=== PATIENT | male | born 1945 | race Caucasian/White ===

== ENCOUNTER 2018-09-23 05:36 | Inpatient (IN) ==
--- NOTE | 2018-09-08 09:27 | PAT Medication Instructions ---
Medication Instructions Date of Service September 08, 2018 Home Medications aspirin [Aspir-81] 81 mg PO QAM cholecalciferol (vitamin D3) 1,000 unit PO QAM cyclobenzaprine 10 mg PO TID PRN docusate sodium 100 mg PO QAM folic acid 1 mg PO QAM lisinopril 20 mg PO QPM multivitamin 1 tab PO QAM phenytoin sodium extended 300 mg PO BID pravastatin 40 mg PO QPM sulindac 200 mg PO TID testosterone 1 dose TOPICAL QAM ASK your surgeon for instructions sulindac 200 mg PO TID STOP taking 24 hours before surgery testosterone 1 dose TOPICAL QAM DO NOT take the morning of surgery cholecalciferol (vitamin D3) 1,000 unit PO QAM cyclobenzaprine 10 mg PO TID PRN docusate sodium 100 mg PO QAM folic acid 1 mg PO QAM multivitamin 1 tab PO QAM Take morning of surgery With a small sip of water, OTHERWISE NOTHING TO EAT OR DRINK AFTER MIDNIGHT: aspirin [Aspir-81] 81 mg PO QAM phenytoin sodium extended 300 mg PO BID Take evening before surgery cyclobenzaprine 10 mg PO TID PRN (if needed) lisinopril 20 mg PO QPM phenytoin sodium extended 300 mg PO BID pravastatin 40 mg PO QPM Other Notes If you have any questions please call us at [phone] or [phone] or [phone] or [phone]
--- NOTE | 2018-09-08 12:40 | Anesthesiology Consultation ---
Date of Service September 08, 2018 Assessment & Plan (1) Encounter for pre-operative examination: Chart Review Chart Review: Acceptable Risk for Surgery and Patient seen in Pre Admission Testing Teaching & Discussion Instructed NPO after midnight before surgery, except medications with 15 cc of water. Medication instructions provided according to the PAT guidelines. History Surgery Operation Date: 09/23/18 12:25 Proposed Procedures p L4-L5, L5-S1 Decompression and Fusion - Addison Donis DO Height/Weight Height: 6 ft 1 in Weight: 116.8 kg Allergies Allergy/AdvReac Type Severity Reaction Status Date / Time fexofenadine Allergy Unknown unknown Verified 09/01/18 11:35 simvastatin Allergy Unknown Nausea Verified 09/01/18 11:35 Sulfa (Sulfonamide Allergy Unknown UNKNOWN Verified 09/01/18 11:35 Antibiotics) Medications Home Medications Medication Instructions Recorded Confirmed Last Taken aspirin [Aspir-81] 81 mg PO QAM 09/01/18 09/01/18 Unknown cholecalciferol (vitamin D3) 1,000 unit PO QAM 09/01/18 09/01/18 Unknown [Vitamin D3] cyclobenzaprine 10 mg PO TID PRN 09/01/18 09/01/18 Unknown docusate sodium 100 mg PO QAM 09/01/18 09/01/18 Unknown folic acid 1 mg PO QAM 09/01/18 09/01/18 Unknown lisinopril 20 mg PO QPM 09/01/18 09/01/18 Unknown multivitamin 1 tab PO QAM 09/01/18 09/01/18 Unknown phenytoin sodium extended 300 mg PO BID 09/01/18 09/01/18 Unknown [Dilantin Extended] pravastatin 40 mg PO QPM 09/01/18 09/01/18 Unknown sulindac 200 mg PO TID 09/01/18 09/01/18 Unknown testosterone 1 dose TOPICAL QAM 09/01/18 09/01/18 Unknown Past Medical History Medical History Chronic back pain TO BILAT LEGS Hyperlipidemia Hypertension Obesity Osteoarthritis Post traumatic stress disorder Seizure Tonic-clonic, 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 No seizure x 3 years. Past Surgical History Surgical History History of carpal tunnel release R/L History of tonsillectomy Hx of varicose vein ligation and stripping RIGHT LEG Past Anesthesia History No Hx of Anesthesia Complications and No Family Hx of Anesthesia Complications History of PONV No Motion Sickness Screening History of Motion Sickness: No Social History Smoking Status: Former smoker Do You Dip or Chew Tobacco: No Smoking End Date: QUIT 50 YRS AGO Hx Alcohol Use: Yes Alcohol type: beer alcohol intake frequency: a few times a month Hx Substance Use: No Exercise / Class Metabolic Activity II 4-5 Yardwork/Stairs/Walk up hill (no SOB or CP with stairs but slow moving 2/ 2 back and leg pain) Review of Systems Pt denies any recent chest pain, shortness of breath, palpitations, cough, fever or URI. Physical Exam Vital Signs BP: 146/85 (pt evaluated by PCP this morning, no changes in HTN medications at this time) P: 79bpm SPO2: 96% RA T: 97.4 F R: 12 ENMT Mouth: + dentures (full upper, partial lower) Thyromental Distance: > or= 3.5 Finger Breadths (3.5) Mallampati Class: I Neck normal visual inspection; neck extension not limited and no facial hair Respiratory normal respiratory effort Auscultation: lungs clear to auscultation bilaterally Cardiovascular Rate/Rhythm: regular rate and regular rhythm Heart Sounds: no murmur Vessels: no carotid bruit Extremities: no edema Testing Electrocardiogram Date: 09/08/18 Findings: + NSR @ (77) 1st degree AV block. iRBBB. No significant change from 06/30/13 EKG. Chest X-Ray Date: 09/08/18 Findings: + NAD Laboratory Results 09/08/18 13:10 09/08/18 13:10 Blood Type O Positive 09/08/18 13:10 Antibody Screen NEGATIVE 09/08/18 13:10 PT 10.5 Seconds (9.0-12.0) 09/08/18 13:10 INR 1.0 (0.9-1.1) 09/08/18 13:10 APTT 28.6 Seconds (21.0-31.0) 09/08/18 13:10 Urine Color Yellow 09/08/18 Unknown Urine Appearance Clear (Clear) 09/08/18 Unknown Urine pH 6.5 (4.5-7.5) 09/08/18 Unknown Ur Specific [place] 1.015 (1.000-1.030) 09/08/18 Unknown Urine Protein Negative (Negative) 09/08/18 Unknown Urine Glucose (UA) Negative (Negative) 09/08/18 Unknown Urine Ketones Negative (Negative) 09/08/18 Unknown Urine Nitrite Negative (Negative) 09/08/18 Unknown Ur Leukocyte Esterase Negative (Negative) 09/08/18 Unknown
--- NOTE | 2018-09-08 13:28 | XRay Report ---
XR chest Pre-admission PA/Lat CLINICAL HISTORY: 73 years-old Male presenting with preoperative assessment. TECHNIQUE: PA and lateral views of the chest were obtained. COMPARISON: 06/30/2013. FINDINGS: Cardiac silhouette top normal in size. Lungs and pleural spaces clear. Degenerative changes of the th oracic spine. Colonic interposition beneath the right hemidiaphragm. IMPRESSION: 1. No acute cardiopulmonary disease. Electronically signed by: Kb Larsen M.D. 09/08/2018 1:26 PM
[2018-09-08 15:37] LABS: Basophils # (auto) 0.08 K/uL (0-0.2); Basophils % (auto) 0.9 %; Eosinophils # (auto) 0.16 K/uL (0-0.5); Eosinophils % (auto) 1.8 %; Hematocrit (blood only) 41.6 % (42-52); Hemoglobin 14.2 g/dL (14.0-18.0); Immature Granulocytes # (auto) 0.02 K/uL (0.00-0.02); Immature Granulocytes % (auto) 0.2 %; Lymphocytes # (auto) 2.19 K/uL (1.2-3.4); Lymphocytes % (auto) 24.1 %; Mean Corpuscular Hgb Conc 34.1 g/dL (32-36); Mean Corpuscular Volume 93.7 fL (80-100); Mean Platelet Volume 9.7 fL (7.4-10.4); Monocytes # (auto) 0.93 K/uL (0.11-0.59); Monocytes % (auto) 10.2 %; Neutrophils % (auto) 62.8 %; Platelet Count 309 K/uL (130-400); RDW Coefficient of Variation 13.2 % (11.5-14.5); RDW Standard Deviation 45.8 fL (36.4-46.3); Red Blood Count 4.44 M/uL (4.7-6.1); White Blood Count 9.08 K/uL (4.8-10.8)
[2018-09-08 15:43] LABS: Appearance Urine Clear (Clear); Bilirubin Urine Negative (Negative); Color Urine Yellow; Glucose Urine UA Negative (Negative); Ketones Urine Negative (Negative); Leukocyte Esterase Urine Negative (Negative); Nitrite Urine Negative (Negative); Protein Urine Negative (Negative); Specific Gravity Urine 1.015 (1.000-1.030); Urobilinogen Urine Negative (Negative); pH Urine 6.5 (4.5-7.5)
[2018-09-08 15:46] LABS: BUN Creatinine Ratio 17.1 (10-20); Creatinine Clr Calc Pharmacy 139.6 ml/min; Est GFR (African American) 113.4; Est GFR (Non-African American) 97.9; Potassium 4.2 mmol/L (3.5-5.1)
[2018-09-08 15:48] LABS: Partial Thromboplastin Ratio 1.1; Partial Thromboplastin Time 28.6 Seconds (21.0-31.0); Prothrombin Time 10.5 Seconds (9.0-12.0)
[2018-09-23] MEDS ORDERED: CeleBREX 200 MG CAP PO SCH (06:00)
[2018-09-23] MEDS ORDERED: CEFAZOLIN 2000MG 2,000 MG/15 ML SYR IV SCH (06:00)
[2018-09-23] MEDS ORDERED: ACETAMINOPHEN 500 MG TAB PO SCH (06:00)
[2018-09-23] MEDS ORDERED: GABAPENTIN 300 MG PO SCH (06:00)
[2018-09-23] MEDS ORDERED: LR 15ML/HR IV SCH (06:00)
[2018-09-23] MEDS ORDERED: ATROPINE SULFATE 0.1 MG/ML 10ML SYR IV PRN (07:04)
[2018-09-23] MEDS ORDERED: fentaNYL citrate 100 MCG/2 ML VIAL IV PRN (07:04)
[2018-09-23] MEDS ORDERED: ONDANSETRON INJ 2 MG/ML 2 ML VIAL IV PRN ×2 (07:04→12:48)
[2018-09-23] MEDS ORDERED: ePHEDrine sulfate 50 MG/ML AMP IV PRN (07:04)
[2018-09-23] MEDS ORDERED: BUPIVACAINE/EPINEPHRINE 0.5% MPF 1:200,000 30 ML VIAL ONE (07:19)
[2018-09-23] MEDS ORDERED: BACITRACIN INJ 50,000 UNIT VIAL ONE (07:19)
[2018-09-23] MEDS ORDERED: fentaNYL citrate 100 MCG/2 ML VIAL ONE (07:43)
[2018-09-23] MEDS ORDERED: PROPOFOL IV EMULSION 10 MG/ML 20 ML VIAL IV ONE (07:43)
[2018-09-23] MEDS ORDERED: ONDANSETRON INJ 2 MG/ML 2 ML VIAL ONE (07:43)
[2018-09-23] MEDS ORDERED: LIDOCAINE HCL 2% 2 ML VIAL/AMP(20MG/ML) INFIL ONE (07:43)
[2018-09-23] MEDS ORDERED: MIDAZOLAM HCL 1 MG/ML 2ML VIAL ONE (07:43)
--- NOTE | 2018-09-23 07:43 | History & Physical Bridge Note ---
Date of Service September 23, 2018 History & Physical Bridge Note I have examined the patient, reviewed the History & Physical and in the interval since the performance of the History & Physical I have noted the following changes of clinical significance: no changes noted
[2018-09-23] MEDS ORDERED: HYDROmorphone INJ 2 MG/ML SYR/VIAL ONE (07:44)
--- NOTE | 2018-09-23 07:44 | History & Physical Report ---
Date of Service September 23, 2018 Assessment & Plan (1) Neurogenic claudication due to lumbar spinal stenosis: Decompression and fusion L4-5 L5-S1 Present on Admission?: Yes History of Present Illness Chief Complaint: Back and leg pain Primary Care Provider: Meeta Carlisle MD This is a 73-year-old male that presents with chronic persistent back and bilateral leg pain. After failing extensive course of nonoperative care is here for surgical intervention. Allergies Allergy/AdvReac Type Severity Reaction Status Date / Time fexofenadine Allergy Unknown unknown Verified 09/23/18 06:29 Sulfa (Sulfonamide Allergy Unknown UNKNOWN Verified 09/23/18 06:29 Antibiotics) simvastatin AdvReac Unknown Nausea Verified 09/23/18 07:08 Home Medications Home Medications Medication Instructions Recorded Confirmed Type aspirin [Aspir-81] 81 mg PO QAM 09/01/18 09/23/18 History cholecalciferol (vitamin D3) 1,000 unit PO QAM 09/01/18 09/23/18 History [Vitamin D3] cyclobenzaprine 10 mg PO TID PRN 09/01/18 09/23/18 History docusate sodium 100 mg PO QAM 09/01/18 09/23/18 History folic acid 1 mg PO QAM 09/01/18 09/23/18 History lisinopril 20 mg PO QPM 09/01/18 09/23/18 History multivitamin 1 tab PO QAM 09/01/18 09/23/18 History phenytoin sodium extended 300 mg PO BID 09/01/18 09/23/18 History [Dilantin Extended] pravastatin 40 mg PO QPM 09/01/18 09/23/18 History sulindac 200 mg PO TID 09/01/18 09/23/18 History testosterone 1 dose TOPICAL QAM 09/01/18 09/23/18 History Past Med/Surg History Medical History Chronic back pain TO BILAT LEGS Hyperlipidemia Hypertension Obesity Osteoarthritis Post traumatic stress disorder Seizure Tonic-clonic, 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 No seizure x 3 years. 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 Required: No Physical Exam 2 Vital Signs (Past 24 Hours): Last Vital Signs Temp 36.7 C 09/23/18 06:38 Pulse 76 09/23/18 06:38 Resp 18 09/23/18 06:38 BP 148/94 H 09/23/18 06:38 Pulse Ox 96 09/23/18 06:38 Results & Data Medications Administered Acetaminophen (Tylenol) 1,000 mg PO PREOP DIANNA Stop: 09/23/18 18:00 Last Admin: 09/23/18 06:57 Dose: 1,000 mg Celecoxib (Celebrex) 200 mg PO PREOP DIANNA Stop: 09/23/18 18:00 Last Admin: 09/23/18 06:57 Dose: 200 mg Gabapentin (Neurontin) 300 mg PO PREOP DIANNA Stop: 09/23/18 18:00 Last Admin: 09/23/18 06:57 Dose: 300 mg Lactated Ringer's (Lr) 1,000 mls @ 15 mls/hr IV .Q24H DIANNA Stop: 09/24/18 05:59 Last Admin: 09/23/18 06:41 Dose: 15 mls/hr
[2018-09-23] MEDS ORDERED: FLOSEAL HEMOSTATIC MATRIX 10ML TOP ONE (08:54)
[2018-09-23] MEDS ORDERED: ROCURONIUM BROMIDE 10 MG/ML 5 ML VIAL ONE ×6 (08:57)
[2018-09-23] MEDS ORDERED: PHENYLEPHRINE 100MCG/ML 5ML SYR ONE (09:07)
[2018-09-23] MEDS ORDERED: CISATRACURIUM BESYLATE IV SOLN 2 MG/ML 10 ML VIAL IV ONE (09:22)
[2018-09-23] MEDS ORDERED: ePHEDrine sulfate 50 MG/ML AMP ONE (09:38)
--- NOTE | 2018-09-23 10:31 | Operative Report ---
Post Operative Report Pre & Post Diagnosis Operation Date: 09/23/18 07:45 Pre-Op Diagnosis: Neurogenic claudication due to lumbar spinal stenosis Post-Op Diagnosis: Neurogenic claudication due to lumbar spinal stenosis Procedure Operation Date: 09/23/18 07:45 Actual Procedures #1 lumbar decompression medial facetectomies foraminotomies L3-4 L4-5 L5-S1 per #2 posterior spinal fusion L4-5 L5-S1 per #3 placed posterior segmental instrumentation L4-5 L5-S1. #4 interbody fusion L4-5 L5-S1. #5 placement of titanium interbody cages L4-5 L5-S1 #6 placement of local autograft in the posterior gutters. #7 placement Feese collagen sponge, mass graft and posterior gutters and ostial amp in the interbody space. Surgeon Addison Donis, Buhr Dresser Kurtis Kitchen Estimated Blood Loss 300 Findings Consistent with Post-Op Diagnosis Specimens None Description of Procedure Patient was met with preoperatively case discussed all questions addressed. After informed consent obtained patient was taken to the operative suite underwent intubation placed in a prone position on the Jose table on top of the Tommie frame. All bony prominences well-padded eyes inspected to ensure no external pressure placed upon. This point the lumbar spine was prepped and draped in a sterile fashion. Sharp dissection with the assistance of Bovie cautery was performed down to and exposing the lamina and transverse process of L4-L5 and sacral ala bilaterally. From a caudal to cephalad fashion complete laminectomy of L5 L4 and partial laminectomy of L3 was performed to the medial facetectomies foraminotomies addressing severe stenosis and foraminal disease particularly on the right. After this complete pedicle screws were placed in L4 L5-S1 levels bilaterally with assistance of fluoroscopy the process zina placed. The transforaminal portion right discectomy was performed in place coated to subcortical mean bone and a 11 x 26 mm titanium cage filled with ostium bone graft tapped in position. Then proceeded L4-[address] of a transforaminal approach on the right complete discectomy performed in plate coated to subcortical mean bone and a 9 x 26 mm titanium cage filled with ostium bone graft tapped in position. The rods were then locked in final position bilaterally. The transverse processes of L4-L5 and sacral ala bur to subcortical B bone. Infuse collagen sponge mass graft local autograft placed in the posterior gutters. 15 round DANNY drain inserted. Incision was then closed with 1 Vicryl fascia 2-0 Vicryl subtenons seen for Monocryl for Fransen closure Steri-Strip sterile dressings placed. Patient will continue to PACU stable disc. Please note Kurtis Kitchen present at the entire procedure involved in patient positioning complex portions of the surgeon final skin closure. I attest to the content of the Intraoperative Record and any orders documented therein. Any exceptions are noted below.
--- NOTE | 2018-09-23 10:40 | Fluoroscopy Report ---
LUMBAR SPINE, INTRAOPERATIVE FLUOROSCOPY HISTORY: L4 S1 decompression and fusion. FLUOROSCOPY TIME: 18 seconds. FINDINGS: Intraoperative fluoroscopy was provided for the lumbar spine. 2 fluoroscopic spot images we re obtained. Posterior decompression and fusion from L4 through S1 with pedicle screws and rods. The hardware appears intact. IMPRESSION: Fluoroscopy provided for a L4-S1 posterior decompression and fusion with pedicle screws a nd rods.. Electronically signed by: Dominic Burgess M.D. 09/23/2018 10:38 AM
--- NOTE | 2018-09-23 12:27 | Anesthesiology Progress Note ---
Date of Service September 23, 2018 Anesthesia Post Procedure Vital Signs Vital Signs: Temp Pulse Pulse Resp BP Pulse Ox 09/23/18 12:15 97.2 F L 67 14 147/83 H 100 09/23/18 12:05 97.2 F L 75 16 148/73 H 100 09/23/18 11:55 75 17 145/78 H 98 09/23/18 11:45 56 L 18 131/70 99 09/23/18 11:35 65 18 147/86 H 98 09/23/18 11:25 55 L 16 127/69 94 09/23/18 11:15 71 16 157/102 H 98 09/23/18 11:05 78 14 169/95 H 98 09/23/18 10:56 97.5 F L 78 16 160/87 H 99 09/23/18 06:38 98.1 F 76 18 148/94 H 96 Notes Mental Status: alert / awake / arousable and participated in evaluation Patient Amnestic to Procedure: Yes Nausea / Vomiting: adequately controlled Pain: adequately controlled Airway Patency, RR, SpO2: stable & adequate BP & HR: stable & adequate Hydration State: stable & adequate Anesthetic Complications: no major complications apparent and Pt Satisfied with anesthetic care
[2018-09-23] MEDS ORDERED: CYCLOBENZAPRINE HCL 10 MG TAB PO PRN (12:48)
[2018-09-23] MEDS ORDERED: FAMOTIDINE 20 MG TAB PO PRN (12:48)
[2018-09-23] MEDS ORDERED: ACETAMINOPHEN 1,000 MG/100 ML VIAL IV PRN (12:48)
[2018-09-23] MEDS ORDERED: ALUMINUM/MAGNESIUM SUSP 30 ML UDC PO PRN (12:48)
[2018-09-23] MEDS ORDERED: ACETAMINOPHEN 500 MG TAB PO PRN (12:48)
[2018-09-23] MEDS ORDERED: LORazepam 0.5 MG TAB PO PRN (12:48)
[2018-09-23] MEDS ORDERED: LORazepam 0.5 MG/1 ML VIAL IV PRN (12:48)
[2018-09-23] MEDS ORDERED: MAGNESIUM HYDROXIDE SUSP 30 ML UDC PO PRN (12:48)
[2018-09-23] MEDS ORDERED: METOCLOPRAMIDE HCL INJ 5 MG/ML 2 ML VIAL IV PRN (12:48)
[2018-09-23] MEDS ORDERED: DO NOT ADMINISTER PNEUMOCOCCAL VACCINE PRN (12:48)
[2018-09-23] MEDS ORDERED: DO NOT ADMINISTER FLU VACCINE PRN (12:48)
[2018-09-23] MEDS ORDERED: ONDANSETRON 4 MG TAB PO PRN (12:48)
[2018-09-23] MEDS ORDERED: PROMETHAZINE HCL 12.5 MG in SODIUM CHLORIDE 0.9% 50 ML IV PRN (12:48)
[2018-09-23] MEDS: KETOROLAC TROMETHAMINE 15 MG/ML VIAL IV SCH ×2 (14:29→19:10)
[2018-09-23] MEDS: SODIUM CHLORIDE 0.9% 1000ML 1,000 ML IV SCH ×2 (14:29→19:11)
[2018-09-23] MEDS: CEFAZOLIN 2000MG 2,000 MG/15 ML SYR IV SCH (16:14)
[2018-09-23] MEDS: TRAMADOL HCL 50 MG TABLET PO PRN (16:14)
[2018-09-23] MEDS: TESTOSTERONE: ORDER AWAITING ACTION SCH (16:16)
[2018-09-23] MEDS: OXYCODONE HCL IR 5 MG TAB (IMMEDIATE RELEASE) PO PRN (18:47)
[2018-09-23] MEDS ORDERED: NURSING DECISION MEDICATION ONE (20:28)
[2018-09-23] MEDS ORDERED: LIDOCAINE 2% JELLY 5 ML TUBE EXT ONE (20:45)
[2018-09-23] MEDS: LISINOPRIL 20 MG TAB PO SCH (21:17)
[2018-09-23] MEDS: PRAVASTATIN SOD 40 MG TAB PO SCH (21:17)
[2018-09-23] MEDS: PHENYTOIN SODIUM ER 100 MG CAP PO SCH (21:17)
[2018-09-23] MEDS: DOCUSATE SODIUM/SENNA 50/8.6MG TAB PO SCH (21:17)
[2018-09-24] MEDS: CEFAZOLIN 2000MG 2,000 MG/15 ML SYR IV SCH (00:20)
[2018-09-24] MEDS: TESTOSTERONE: ORDER AWAITING ACTION SCH (00:42)
[2018-09-24] MEDS: OXYCODONE HCL IR 5 MG TAB (IMMEDIATE RELEASE) PO PRN (01:00)
[2018-09-24] MEDS: KETOROLAC TROMETHAMINE 15 MG/ML VIAL IV SCH ×2 (01:02→09:11)
[2018-09-24] MEDS: SODIUM CHLORIDE 0.9% 1000ML 1,000 ML IV SCH (01:03)
[2018-09-24] MEDS: HYDROmorphone INJ 0.5 MG/0.5 ML SYR IV PRN ×2 (01:10→04:12)
[2018-09-24] MEDS: TRAMADOL HCL 50 MG TABLET PO PRN ×2 (03:21→20:05)
[2018-09-24] MEDS ORDERED: Nursing to Pharmacy Communication ONE (03:22)
[2018-09-24] MEDS: POLYETHYLENE (MIRALAX) 17 GM PACK PO SCH ×3 (05:27→17:04)
[2018-09-24 06:08] LABS: Basophils # (auto) 0.03 K/uL (0-0.2); Basophils % (auto) 0.3 %; Eosinophils # (auto) 0.06 K/uL (0-0.5); Eosinophils % (auto) 0.6 %; Hematocrit (blood only) 33.4 % (42-52); Hemoglobin 11.3 g/dL (14.0-18.0); Immature Granulocytes # (auto) 0.02 K/uL (0.00-0.02); Immature Granulocytes % (auto) 0.2 %; Lymphocytes # (auto) 1.51 K/uL (1.2-3.4); Lymphocytes % (auto) 16.3 %; Mean Corpuscular Hgb Conc 33.8 g/dL (32-36); Mean Platelet Volume 9.5 fL (7.4-10.4); Monocytes # (auto) 1.28 K/uL (0.11-0.59); Monocytes % (auto) 13.8 %; Neutrophils # (auto) 6.37 K/uL (1.4-6.5); Neutrophils % (auto) 68.8 %; Platelet Count 228 K/uL (130-400); RDW Coefficient of Variation 13.2 % (11.5-14.5); Red Blood Count 3.59 M/uL (4.7-6.1); White Blood Count 9.27 K/uL (4.8-10.8)
[2018-09-24 06:43] LABS: BUN Creatinine Ratio 14.7 (10-20); Calcium 7.8 mg/dl (8.5-10.1); Creatinine Clr Calc Pharmacy 148.3 ml/min; Est GFR (African American) 115.7; Est GFR (Non-African American) 99.8; Potassium 3.9 mmol/L (3.5-5.1)
[2018-09-24] MEDS: TESTOSTERONE EXT SCH (09:03)
[2018-09-24] MEDS: ASPIRIN 81 MG ECTAB PO SCH (09:39)
[2018-09-24] MEDS: FOLIC ACID 1 MG TAB PO SCH (09:39)
[2018-09-24] MEDS: PHENYTOIN SODIUM ER 100 MG CAP PO SCH ×2 (09:40→21:36)
[2018-09-24] MEDS: CHOLECALCIFEROL 1,000 UNITS TAB PO SCH (09:40)
[2018-09-24] MEDS: MULTIVITAMIN TAB PO SCH (09:40)
[2018-09-24] MEDS: DOCUSATE SODIUM 100 MG CAP PO SCH (09:40)
--- NOTE | 2018-09-24 10:27 | Orthopedic Progress Note ---
Date of Service September 24, 2018 Assessment & Plan (1) Neurogenic claudication due to lumbar spinal stenosis: Continue physical therapy today monitor his DANNY output anticipate discharge home Wednesday. Present on Admission?: Yes Subjective Back pain is controlled leg symptoms markedly improved Physical Exam 2 Vital Signs (Past 24 Hours): Last Vital Signs Temp 36.6 C 09/24/18 03:13 Pulse 86 09/24/18 04:09 Resp 16 09/24/18 03:13 BP 146/76 H 09/24/18 04:09 Pulse Ox 95 09/24/18 03:13 Physical Exam: Patient is sitting up at the bedside is good strength testing bilateral extremities.
[2018-09-24] MEDS: SOD PHOSPHATE/SOD BIPHOSPHATE ENEMA 132 ML BTL PR PRN (17:34)
--- NOTE | 2018-09-24 21:15 | Family Medicine Consultation ---
Date of Consultation September 24, 2018 Assessment & Plan (1) Seizure disorder: 73 yo gentleman with PMHx of seizures and HTN admitted for surgical management of neurogenic claudication. -Continue home Dilantin (2) Hypertension: Continue home Lisinopril Supervising Physician Co-Signing Physician Notes I personally examined the patient and verified all mayorga points of history and exam, discussed case, and agree with decision making with Dr Cerrato. Feeling okay overall, mostly worried about feeling constipated. Vitals noted, in general he is in no acute distress but he is mildly anxious. HEENT normal cephalic atraumatic mucous members are moist. Lungs are unlabored no accessory muscle use good effort. Skin shows no rashes no pallor or icterus. Constipationbowel regimen Hypertension continue current meds and follow Seizure disorder continue home meds and follow DVT prophylaxis per orthopedic surgery Otherwise as above History of Present Illness Reason for Consultation: Management of epilepsy and HTN while hospitalized for surgery. Attending Physician: Addison Donis DO History of Present Illness States he is here for surgery for neurogenic claudication secondary to lumbar spinal stenosis. On Lisinopril 10mg for HTN. Doing well with that. Also on medication for epilepsy and has not had a seizure in 3 years. Doing well after surgery. Fells pain is well controlled. Has to remain in certain positions but otherwise doing well. Allergies Allergy/AdvReac Type Severity Reaction Status Date / Time fexofenadine Allergy Unknown unknown Verified 09/23/18 06:29 Sulfa (Sulfonamide Allergy Unknown UNKNOWN Verified 09/23/18 06:29 Antibiotics) simvastatin AdvReac Unknown Nausea Verified 09/23/18 07:08 Home Medications Home Medications Medication Instructions Recorded Confirmed Type aspirin [Aspir-81] 81 mg PO QAM 09/01/18 09/23/18 History cholecalciferol (vitamin D3) 1,000 unit PO QAM 09/01/18 09/23/18 History [Vitamin D3] cyclobenzaprine 10 mg PO TID PRN 09/01/18 09/23/18 History docusate sodium 100 mg PO QAM 09/01/18 09/23/18 History folic acid 1 mg PO QAM 09/01/18 09/23/18 History lisinopril 20 mg PO QPM 09/01/18 09/23/18 History multivitamin 1 tab PO QAM 09/01/18 09/23/18 History phenytoin sodium extended 300 mg PO BID 09/01/18 09/23/18 History [Dilantin Extended] pravastatin 40 mg PO QPM 09/01/18 09/23/18 History sulindac 200 mg PO TID 09/01/18 09/23/18 History testosterone 1 dose TOPICAL QAM 09/01/18 09/23/18 History oxycodone 5 mg PO Q4H PRN #30 tab 09/24/18 Rx tramadol 50 mg PO Q4H PRN #30 tab 09/24/18 Rx Patient History Medical History Chronic back pain TO BILAT LEGS Hyperlipidemia Hypertension Obesity Osteoarthritis Post traumatic stress disorder Seizure Tonic-clonic, 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 No seizure x 3 years. Surgical History History of carpal tunnel release R/L History of tonsillectomy Hx of varicose vein ligation and stripping RIGHT LEG Social History marital status: Current Living Situation: Spouse Other Information That Helps Us Care for You: No Feels Safe at Home: Yes Safety Concerns: Feels Safe At This Time Smoking Status: Former smoker Do You Dip or Chew Tobacco: No Smoking End Date: QUIT 50 YRS AGO Hx Alcohol Use: Yes Alcohol type: beer Alcohol Intake Frequency: a few times a month Hx Substance Use: No Beliefs That Will Affect Care: None Communication Ability: Effective Review of Systems Constitutional: as per Subjective / HPI Gastrointestinal: + constipation Musculoskeletal: + back pain, + joint pain and + limited range of motion Physical Exam 2 Vital Signs (Past 24 Hours): Last Vital Signs Temp 36.6 C 09/24/18 11:57 Pulse 96 H 09/24/18 11:57 Resp 16 09/24/18 11:57 BP 152/78 H 09/24/18 11:57 Pulse Ox 95 09/24/18 11:57 General: Alert, oriented. No acute distress HEENT: NC/AT, PERRLA, EOMI, oropharynx moist. Chest: Nontender to palpation. CV: RRR, Normal s1, s2. No murmurs appreciated Resp: Breath sounds clear bilaterally, no increased effort of breathing. No crackles/rhonchi/rales. Abdomen: BS+. Soft, nontender, nondistended. No guarding. No organomegaly appreciated. Extremities: No edema. Neuro: CNII-XII grossly intact. cauttious gait Results & Data Medications Administered Home Medications aspirin [Aspir-81] 81 mg PO QAM 09/01/18 [History Confirmed 09/23/18] cholecalciferol (vitamin D3) [Vitamin D3] 1,000 unit PO QAM 09/01/18 [History Confirmed 09/23/18] cyclobenzaprine 10 mg PO TID PRN 09/01/18 [History Confirmed 09/23/18] docusate sodium 100 mg PO QAM 09/01/18 [History Confirmed 09/23/18] folic acid 1 mg PO QAM 09/01/18 [History Confirmed 09/23/18] lisinopril 20 mg PO QPM 09/01/18 [History Confirmed 09/23/18] multivitamin 1 tab PO QAM 09/01/18 [History Confirmed 09/23/18] phenytoin sodium extended [Dilantin Extended] 300 mg PO BID 09/01/18 [History Confirmed 09/23/18] pravastatin 40 mg PO QPM 09/01/18 [History Confirmed 09/23/18] sulindac 200 mg PO TID 09/01/18 [History Confirmed 09/23/18] testosterone 1 dose TOPICAL QAM 09/01/18 [History Confirmed 09/23/18] oxycodone 5 mg PO Q4H PRN #30 tab 09/24/18 [Rx] tramadol 50 mg PO Q4H PRN #30 tab 09/24/18 [Rx] Active Medications Acetaminophen (Tylenol) 1,000 mg PO Q8H PRN PRN Reason: MILD Pain Rating 1,2,3 Stop: 10/23/18 12:47 Last Admin: 09/24/18 19:36 Dose: 1,000 mg Al Hydrox/Mg Hydrox/Simethicone (Maalox) 30 ml PO Q6H PRN PRN Reason: Dyspepsia Stop: 10/23/18 12:47 Aspirin (Ecotrin Ectab) [facility] [place] Stop: 10/24/18 08:59 Last Admin: 09/24/18 09:39 Dose: 81 mg Cyclobenzaprine HCl (Flexeril) 10 mg PO TID PRN PRN Reason: SPASM Stop: 10/23/18 12:47 Diphenhydramine HCl (Benadryl) 25 mg PO Q6H PRN PRN Reason: Allergic Rhinitis/Insomnia Stop: 10/23/18 12:47 Docusate Sodium (Colace) 100 mg PO QAM [facility] Stop: 10/24/18 08:59 Last Admin: 09/24/18 09:40 Dose: 100 mg Famotidine (Pepcid) 20 mg PO Q12H PRN PRN Reason: Dyspepsia Stop: 10/23/18 12:47 Folic Acid (Folvite) 1 mg PO [facility] Stop: 10/24/18 08:59 Last Admin: 09/24/18 09:39 Dose: 1 mg Hydromorphone HCl (Dilaudid) 0.5 - 1 mg IV Q3H PRN PRN Reason: Pain Stop: 10/07/18 12:47 Last Admin: 09/24/18 04:12 Dose: 0.5 mg Hydroxyzine HCl (Vistaril) 25 mg PO Q8H PRN PRN Reason: Anxiety Stop: 10/23/18 12:47 Acetaminophen (Ofirmev) 1,000 mg in 100 mls @ 400 mls/hr IV Q8 PRN PRN Reason: MILD Pain Rating 1,2,3 Stop: 10/23/18 12:47 Last Infusion: 09/23/18 17:55 Dose: Infused Lorazepam (Ativan) 0.5 mg in 1 mls @ 0.5 mls/min IV Q8H PRN PRN Reason: Sedation/Anxiety Stop: 10/23/18 12:47 Promethazine HCl 12.5 mg/ (Sodium Chloride) 50.5 mls @ 204 mls/hr IV Q6H PRN PRN Reason: Nausea &/or Vomiting Stop: 10/23/18 12:47 Lisinopril (Zestril) 20 mg PO QPM [facility] Stop: 10/23/18 20:59 Last Admin: 09/24/18 21:36 Dose: 20 mg Lorazepam (Ativan) 0.5 mg PO Q8H PRN PRN Reason: Sedation/Anxiety Stop: 10/23/18 12:47 Magnesium Hydroxide (Milk Of Magnesia) 30 ml PO DAILY PRN PRN Reason: Constipation Stop: 10/23/18 12:47 Last Admin: 09/24/18 15:14 Dose: 30 ml Metoclopramide HCl (Reglan) 10 mg IV Q6H PRN PRN Reason: Nausea &/or Vomiting Stop: 10/23/18 12:47 Miscellaneous (Pneumococcal Vacc, Do Not Administer) 1 ea N/A PRN PRN PRN Reason: Notification Stop: 10/23/18 12:47 Miscellaneous (Flu Vaccine, Do Not Administer) 1 ea N/A PRN PRN PRN Reason: Notification Stop: 10/23/18 12:47 Multivitamins (Multivitamin Tab) 1 tab PO QAM [facility] Stop: 10/24/18 08:59 Last Admin: 09/24/18 09:40 Dose: 1 tab Testosterone Gel~Non -Formulary Patient's Own Med 1 ea EXT DAILY@0800 [facility] Stop: 10/24/18 07:59 Last Admin: 09/24/18 09:03 Dose: 2 units Ondansetron HCl (Zofran) 4 mg PO Q6H PRN PRN Reason: Nausea Stop: 10/23/18 12:47 Ondansetron HCl (Zofran) 4 mg IV Q6H PRN PRN Reason: Nausea &/or Vomiting Stop: 10/23/18 12:47 Oxycodone HCl (Roxicodone Immediate Rel) 5 - 10 mg PO Q4H PRN PRN Reason: Moderate-Severe Pain Stop: 10/07/18 12:47 Last Admin: 09/24/18 01:00 Dose: 5 mg Phenytoin Sodium (Dilantin Er) 300 mg PO BID [facility] Stop: 10/23/18 20:59 Last Admin: 09/24/18 21:36 Dose: 300 mg Pravastatin Sodium (Pravachol) 40 mg PO QPM [facility] Stop: 10/23/18 20:59 Last Admin: 09/24/18 21:36 Dose: 40 mg Senna/Docusate Sodium (Senokot S) 2 tab PO HS [facility] Stop: 10/23/18 20:59 Last Admin: 09/24/18 21:36 Dose: 2 tab Sodium Biphosphate/Sodium Phosphate (Fleet Enema) 132 ml [place] PRN PRN Reason: Constipation Stop: 10/23/18 12:47 Last Admin: 09/25/18 03:36 Dose: 132 ml Tramadol HCl (Ultram) 50 - 100 mg PO Q4H PRN PRN Reason: Moderate-Severe pain Stop: 10/23/18 12:47 Last Admin: 09/25/18 00:08 Dose: 100 mg Vitamin D (Vitamin D3) 1,000 units PO QAM DIANNA Stop: 10/24/18 08:59 Last Admin: 09/24/18 09:40 Dose: 1,000 units Resident Activity Tracking Resident Involvement: Resident Care Provided Care Provided: Adult Hospital Medicine
[2018-09-24] MEDS: PRAVASTATIN SOD 40 MG TAB PO SCH (21:36)
[2018-09-24] MEDS: LISINOPRIL 20 MG TAB PO SCH (21:36)
[2018-09-24] MEDS: DOCUSATE SODIUM/SENNA 50/8.6MG TAB PO SCH (21:36)
[2018-09-25] MEDS: TRAMADOL HCL 50 MG TABLET PO PRN (00:08)
[2018-09-25] MEDS: POLYETHYLENE (MIRALAX) 17 GM PACK PO SCH (00:10)
[2018-09-25] MEDS: SOD PHOSPHATE/SOD BIPHOSPHATE ENEMA 132 ML BTL PR PRN (03:36)
[2018-09-25] MEDS: TESTOSTERONE EXT SCH (08:48)
[2018-09-25] MEDS: CHOLECALCIFEROL 1,000 UNITS TAB PO SCH (08:51)
[2018-09-25] MEDS: MULTIVITAMIN TAB PO SCH (08:51)
[2018-09-25] MEDS: PHENYTOIN SODIUM ER 100 MG CAP PO SCH ×2 (08:51→21:13)
[2018-09-25] MEDS: DOCUSATE SODIUM 100 MG CAP PO SCH (08:51)
[2018-09-25] MEDS: FOLIC ACID 1 MG TAB PO SCH (08:52)
[2018-09-25 09:22] LABS: Basophils # (auto) 0.03 K/uL (0-0.2); Basophils % (auto) 0.3 %; Eosinophils # (auto) 0.04 K/uL (0-0.5); Eosinophils % (auto) 0.3 %; Hemoglobin 11.6 g/dL (14.0-18.0); Immature Granulocytes # (auto) 0.02 K/uL (0.00-0.02); Immature Granulocytes % (auto) 0.2 %; Lymphocytes # (auto) 1.45 K/uL (1.2-3.4); Lymphocytes % (auto) 12.1 %; Mean Corpuscular Hgb Conc 34.1 g/dL (32-36); Mean Corpuscular Volume 92.9 fL (80-100); Mean Platelet Volume 9.8 fL (7.4-10.4); Monocytes # (auto) 1.22 K/uL (0.11-0.59); Monocytes % (auto) 10.2 %; Neutrophils # (auto) 9.21 K/uL (1.4-6.5); Neutrophils % (auto) 76.9 %; Platelet Count 274 K/uL (130-400); RDW Coefficient of Variation 13.2 % (11.5-14.5); RDW Standard Deviation 44.5 fL (36.4-46.3); Red Blood Count 3.66 M/uL (4.7-6.1); White Blood Count 11.97 K/uL (4.8-10.8)
[2018-09-25] MEDS: ASPIRIN 81 MG ECTAB PO SCH (09:29)
[2018-09-25 09:48] LABS: Calcium 8.5 mg/dl (8.5-10.1); Est GFR (African American) 114.9; Est GFR (Non-African American) 99.1
--- NOTE | 2018-09-25 11:47 | Orthopedic Progress Note ---
Date of Service September 25, 2018 Assessment & Plan (1) Neurogenic claudication due to lumbar spinal stenosis: We will continue physical therapy today monitor his DANNY output anticipate discharge home tomorrow. Present on Admission?: Yes Subjective Patient's back pain is controlled leg symptoms markedly improved. Physical Exam 2 Vital Signs (Past 24 Hours): Last Vital Signs Temp 36.8 C 09/25/18 07:53 Pulse 93 H 09/25/18 07:53 Resp 16 09/25/18 07:53 BP 124/68 09/25/18 07:53 Pulse Ox 93 09/25/18 07:53 Physical Exam: Patient is ambulating halls is good strength testing.
--- NOTE | 2018-09-25 14:00 | Family Medicine Progress Note ---
Date of Service September 25, 2018 Assessment & Plan (1) Seizure disorder: 73 yo gentleman with PMHx of seizures and HTN admitted for surgical management of neurogenic claudication. Pt stable. Will be signing off. -Continue home Dilantin (2) Hypertension: Continue home Lisinopril (3) Constipation: Continue Miralax Supervising Physician Co-Signing Physician Notes I personally examined the patient and verified all mayorga points of history and exam, discussed case, and agree with decision making with Dr Cerrato. Had 2 bowel movements when he notes fairly large. Feels like he may still have more to move. No other complaints. Vitals noted, in general he is in no acute distress but he is mildly anxious. HEENT normal cephalic atraumatic mucous members are moist. Lungs are unlabored no accessory muscle use good effort. Abdomen soft very mildly distended nontender no guarding no rebound no rigidity skin shows no rashes no pallor or icterus. Constipationbowel regimen, reassurance as he is having bowel movements. He seems fairly anxious about this. His abdomen is benign and he is moving his bowels however. Hypertension continue current meds and follow, his readings have been a bit variable but overall acceptable given the situation Seizure disorder continue home meds and follow, this appears stable Mild hyponatremiaon review of old charts this appears to be fairly long- standing, outpatient follow-up. DVT prophylaxis per orthopedic surgery Otherwise as above Medically his situation appears stable. We will sign off for now, but will be available if needed, please do not hesitate to call. Thank you. Subjective States pain is well controlled and he had a bowel movement last night and this morning with enema. A bit anxious about being constipated. Constitutional: as per Subjective / HPI Gastrointestinal: + constipation Musculoskeletal: + back pain, + joint pain and + limited range of motion Physical Exam 2 Vital Signs (Past 24 Hours): Last Vital Signs Temp 36.8 C 09/25/18 07:53 Pulse 93 H 09/25/18 07:53 Resp 16 09/25/18 07:53 BP 124/68 09/25/18 07:53 Pulse Ox 93 09/25/18 07:53 General: Alert, oriented. No acute distress HEENT: NC/AT, PERRLA, EOMI, oropharynx moist. Chest: Nontender to palpation. CV: RRR, Normal s1, s2. No murmurs appreciated Resp: Breath sounds clear bilaterally, no increased effort of breathing. No crackles/rhonchi/rales. Abdomen: BS+. Soft, nontender, nondistended. No guarding. No organomegaly appreciated. Extremities: No edema. Neuro: CNII-XII grossly intact. 5/5 strength grossly intact in upper and lower extremities bilaterally. Results & Data Laboratory Results Laboratory Results - last 24 hr 09/23/18 09/25/18 09/25/18 05:57 09:03 09:03 WBC 11.97 H RBC 3.66 L Hgb 11.6 L Hct 34.0 L MCV 92.9 MCH 31.7 MCHC 34.1 RDW Std Deviation 44.5 RDW Coeff of Clarice 13.2 Plt Count 274 MPV 9.8 Immature Gran % (Auto) 0.2 Neut % (Auto) 76.9 Lymph % (Auto) 12.1 Luce % (Auto) 10.2 Eos % (Auto) 0.3 Baso % (Auto) 0.3 Immature Gran # (Auto) 0.02 Neut # (Auto) 9.21 H Lymph # (Auto) 1.45 Luce # (Auto) 1.22 H Eos # (Auto) 0.04 Baso # (Auto) 0.03 Sodium 130 L Potassium 4.0 Chloride 98 Carbon Dioxide 23 Anion Gap 9.0 BUN 6 L Creatinine 0.63 Est Cr Clr Drug Dosing 146.0 Est GFR ( Amer) 114.9 Est GFR (Non-Af Amer) 99.1 BUN/Creatinine Ratio 9.0 L Glucose 189 H Calcium 8.5 Crossmatch See Detail Medications Administered Home Medications aspirin [Aspir-81] 81 mg PO QAM 09/01/18 [History Confirmed 09/23/18] cholecalciferol (vitamin D3) [Vitamin D3] 1,000 unit PO QAM 09/01/18 [History Confirmed 09/23/18] cyclobenzaprine 10 mg PO TID PRN 09/01/18 [History Confirmed 09/23/18] docusate sodium 100 mg PO QAM 09/01/18 [History Confirmed 09/23/18] folic acid 1 mg PO QAM 09/01/18 [History Confirmed 09/23/18] lisinopril 20 mg PO QPM 09/01/18 [History Confirmed 09/23/18] multivitamin 1 tab PO QAM 09/01/18 [History Confirmed 09/23/18] phenytoin sodium extended [Dilantin Extended] 300 mg PO BID 09/01/18 [History Confirmed 09/23/18] pravastatin 40 mg PO QPM 09/01/18 [History Confirmed 09/23/18] sulindac 200 mg PO TID 09/01/18 [History Confirmed 09/23/18] testosterone 1 dose TOPICAL QAM 09/01/18 [History Confirmed 09/23/18] oxycodone 5 mg PO Q4H PRN #30 tab 09/24/18 [Rx] tramadol 50 mg PO Q4H PRN #30 tab 09/24/18 [Rx] Active Medications Acetaminophen (Tylenol) 1,000 mg PO Q8H PRN PRN Reason: MILD Pain Rating 1,2,3 Stop: 10/23/18 12:47 Last Admin: 09/24/18 19:36 Dose: 1,000 mg Al Hydrox/Mg Hydrox/Simethicone (Maalox) 30 ml PO Q6H PRN PRN Reason: Dyspepsia Stop: 10/23/18 12:47 Aspirin (Ecotrin Ectab) 81 mg PO [facility] Stop: 10/24/18 08:59 Last Admin: 09/25/18 09:29 Dose: 81 mg Cyclobenzaprine HCl (Flexeril) 10 mg PO TID PRN PRN Reason: SPASM Stop: 10/23/18 12:47 Diphenhydramine HCl (Benadryl) 25 mg PO Q6H PRN PRN Reason: Allergic Rhinitis/Insomnia Stop: 10/23/18 12:47 Docusate Sodium (Colace) 100 mg PO [facility] Stop: 10/24/18 08:59 Last Admin: 09/25/18 08:51 Dose: 100 mg Famotidine (Pepcid) 20 mg PO Q12H PRN PRN Reason: Dyspepsia Stop: 10/23/18 12:47 Folic Acid (Folvite) 1 mg PO [facility] Stop: 10/24/18 08:59 Last Admin: 09/25/18 08:52 Dose: 1 mg Hydromorphone HCl (Dilaudid) 0.5 - 1 mg IV Q3H PRN PRN Reason: Pain Stop: 10/07/18 12:47 Last Admin: 09/24/18 04:12 Dose: 0.5 mg Hydroxyzine HCl (Vistaril) 25 mg PO Q8H PRN PRN Reason: Anxiety Stop: 10/23/18 12:47 Acetaminophen (Ofirmev) 1,000 mg in 100 mls @ 400 mls/hr IV Q8 PRN PRN Reason: MILD Pain Rating 1,2,3 Stop: 10/23/18 12:47 Last Infusion: 09/23/18 17:55 Dose: Infused Lorazepam (Ativan) 0.5 mg in 1 mls @ 0.5 mls/min IV Q8H PRN PRN Reason: Sedation/Anxiety Stop: 10/23/18 12:47 Promethazine HCl 12.5 mg/ (Sodium Chloride) 50.5 mls @ 204 mls/hr IV Q6H PRN PRN Reason: Nausea &/or Vomiting Stop: 10/23/18 12:47 Lisinopril (Zestril) 20 mg PO QPM [facility] Stop: 10/23/18 20:59 Last Admin: 09/24/18 21:36 Dose: 20 mg Lorazepam (Ativan) 0.5 mg PO Q8H PRN PRN Reason: Sedation/Anxiety Stop: 10/23/18 12:47 Magnesium Hydroxide (Milk Of Magnesia) 30 ml PO DAILY PRN PRN Reason: Constipation Stop: 10/23/18 12:47 Last Admin: 09/24/18 15:14 Dose: 30 ml Metoclopramide HCl (Reglan) 10 mg IV Q6H PRN PRN Reason: Nausea &/or Vomiting Stop: 10/23/18 12:47 Miscellaneous (Pneumococcal Vacc, Do Not Administer) 1 ea N/A PRN PRN PRN Reason: Notification Stop: 10/23/18 12:47 Miscellaneous (Flu Vaccine, Do Not Administer) 1 ea N/A PRN PRN PRN Reason: Notification Stop: 10/23/18 12:47 Multivitamins (Multivitamin Tab) 1 tab PO QAM [facility] Stop: 10/24/18 08:59 Last Admin: 09/25/18 08:51 Dose: 1 tab Testosterone Gel~Non -Formulary Patient's Own Med 1 ea EXT DAILY@0800 [facility] Stop: 10/24/18 07:59 Last Admin: 09/25/18 08:48 Dose: 2 units Ondansetron HCl (Zofran) 4 mg PO Q6H PRN PRN Reason: Nausea Stop: 10/23/18 12:47 Ondansetron HCl (Zofran) 4 mg IV Q6H PRN PRN Reason: Nausea &/or Vomiting Stop: 10/23/18 12:47 Oxycodone HCl (Roxicodone Immediate Rel) 5 - 10 mg PO Q4H PRN PRN Reason: Moderate-Severe Pain Stop: 10/07/18 12:47 Last Admin: 09/24/18 01:00 Dose: 5 mg Phenytoin Sodium (Dilantin Er) 300 mg PO BID [facility] Stop: 10/23/18 20:59 Last Admin: 09/25/18 08:51 Dose: 300 mg Pravastatin Sodium (Pravachol) 40 mg PO QPM [facility] Stop: 10/23/18 20:59 Last Admin: 09/24/18 21:36 Dose: 40 mg Senna/Docusate Sodium (Senokot S) 2 tab PO HS [facility] Stop: 10/23/18 20:59 Last Admin: 09/24/18 21:36 Dose: 2 tab Sodium Biphosphate/Sodium Phosphate (Fleet Enema) 132 ml [place] ONE PRN PRN Reason: Constipation Stop: 10/23/18 12:47 Last Admin: 09/25/18 03:36 Dose: 132 ml Tramadol HCl (Ultram) 50 - 100 mg PO Q4H PRN PRN Reason: Moderate-Severe pain Stop: 10/23/18 12:47 Last Admin: 09/25/18 00:08 Dose: 100 mg Vitamin D (Vitamin D3) 1,000 units PO QAM [facility] Stop: 10/24/18 08:59 Last Admin: 09/25/18 08:51 Dose: 1,000 units Resident Activity Tracking Resident Involvement: Resident Care Provided Care Provided: Adult Hospital Medicine
[2018-09-25] MEDS: LISINOPRIL 20 MG TAB PO SCH (21:13)
[2018-09-25] MEDS: PRAVASTATIN SOD 40 MG TAB PO SCH (21:13)
[2018-09-25] MEDS: DOCUSATE SODIUM/SENNA 50/8.6MG TAB PO SCH (21:13)
--- NOTE | 2018-09-26 08:23 | Anesthesiology Progress Note ---
Date of Service September 26, 2018 Anesthesia Post Procedure Vital Signs Vital Signs: Temp Pulse Pulse Resp BP BP Pulse Ox 09/26/18 07:05 36.8 C 86 18 166/81 H 93 09/26/18 03:53 36.5 C 89 18 160/81 H 94 09/25/18 23:26 36.8 C 102 H 17 160/81 H 94 09/25/18 21:15 99 H 156/80 H 09/25/18 15:59 36.8 C 92 H 20 118/73 95 Pain Intensity Medial Back: Pain Intensity: 4 Notes Mental Status: alert / awake / arousable and participated in evaluation Patient Amnestic to Procedure: Yes Nausea / Vomiting: adequately controlled Pain: adequately controlled Airway Patency, RR, SpO2: stable & adequate BP & HR: stable & adequate Hydration State: stable & adequate Anesthetic Complications: no major complications apparent and Pt Satisfied with anesthetic care
[2018-09-26] MEDS: DOCUSATE SODIUM 100 MG CAP PO SCH (08:28)
[2018-09-26] MEDS: TESTOSTERONE EXT SCH (08:28)
[2018-09-26] MEDS: FOLIC ACID 1 MG TAB PO SCH (08:29)
[2018-09-26] MEDS: MULTIVITAMIN TAB PO SCH (08:29)
[2018-09-26] MEDS: CHOLECALCIFEROL 1,000 UNITS TAB PO SCH (08:29)
[2018-09-26] MEDS: ASPIRIN 81 MG ECTAB PO SCH (08:29)
[2018-09-26] MEDS: PHENYTOIN SODIUM ER 100 MG CAP PO SCH (08:29)
--- NOTE | 2018-09-26 12:48 | Discharge Summary ---
Date of Service September 26, 2018 Admission HPI Per Admitting Provider This is a 73-year-old male that presents with chronic persistent back and bilateral leg pain. After failing extensive course of nonoperative care is here for surgical intervention. Principal Diagnosis Lumbar spinal stenosis Discharge Data Allergies Allergy/AdvReac Type Severity Reaction Status Date / Time fexofenadine Allergy Unknown unknown Verified 09/23/18 06:29 Sulfa (Sulfonamide Allergy Unknown UNKNOWN Verified 09/23/18 06:29 Antibiotics) simvastatin AdvReac Unknown Nausea Verified 09/23/18 07:08 Consultations 09/23/18 12:48 Consult Case Management - Discharge Planning Routine 09/23/18 14:38 Consult Hospitalist Routine Procedures Performed Operation Date: 09/23/18 07:45 Actual Procedures p L4-L5, L5-S1 Decompression and Fusion(Not Applicable) - Addison Donis DO Ordered Studies 09/23/18 07:45 FL fluoroscopy <1hr Routine FL lumbar spine 2-3V Routine Hospital Course (1) Neurogenic claudication due to lumbar spinal stenosis: Patient underwent multilevel lumbar decompression fusion tolerated this well was taken to the orthopedic floor postoperative. Postop day 1 he was up and ambulating well. Progressive that his hospital stay. DANNY drain decreasing appropriately. Subsequently discharged home. Discharge orders and instructions found in the chart for further review. Total Time Total Time Spent Total Time Spent (In Minutes): Not applicable Discharge Plan Discharge Items Patient Disposition: Home - Home Health Services Reason For Visit: Spinal Stenosis Discharge Diagnosis: lumbar stenosis Discharge Goals: Improve function Activity: Per 'Additional Instructions' section Non-emergency contact: Primary Care Provider Call non-emergency contact if: you have any medication questions Follow-up/Referrals: Meeta Carlisle MD [Primary Care Provider] - Diet: Regular Addtl Provider Instructions: ACTIVITY RECOMMENDATIONS: SELF CARE INSTRUCTIONS AFTER THORACIC/LUMBAR FUSIONS 1. You may walk to your tolerance. It is good exercise for your legs and back. Expect some back and intermittent leg aches and pains. 2. You may perform "counter-top" level activities (make a sandwich, jackie with a project, etc.). 3. No bending or lifting of more than 10 pounds or back twisting of any nature (roll like a log when turning in bed). 4. You may ride in a car for 20-30 minutes at a time. No driving until after your first visit with your doctor. 5. Frequent changes of position and restricting sitting to 30 minutes at a time will help limit the amount of back spasms and stiffness you may experience. 6. You may discontinue the use of ambulatory aids (cane, crutches, etc.) once your strength and confidence allow. 7. You may ceramic engineer the shower and let water strike your incision when you arrive home at least once daily. Do not take a tub bath, sit in a hot tub or go into a swimming pool until after your first recheck in the office. SPECIAL CARE INSTRUCTIONS: VERY IMPORTANT TO READ AND REVIEW A. Your surgical incision has been closed with a cosmetic suture under the skin that will dissolve in about 6 weeks. In 14 days, you can use a pair of clean scissors and cut the suture that is left outside of the skin at the ends of your incision. 1. The small skin tapes can be removed 7 days after surgery if they have not fallen off by that point. 2. You may keep the wound open to air as much as possible to promote healing after post-op day number 5 unless told otherwise by your doctor. 3. If you think the wound looks like it is becoming infected (redness or worsening drainage) and/or you are experiencing fever, chill or worsening back pain and muscle spasms, contact the office so that we may evaluate you as soon as possible. B. Complications are uncommon, but please contact us if you have any signs or symptoms of: 1. wound infection (fever higher than 102.5 degrees F, redness, separation of wound, drainage, or increasing pain from the incision) 2. blood clots in legs (pain, swelling, redness and warmth in legs) 3. urinary tract infection (fever higher than 102.5 degrees F, burning upon urination or increased frequency of urination) 4. nerve problems (inability to walk on your toes or heels, numbness, loss of bowel or bladder control) 5. any other symptoms that concern you C. Please call the office at if you have any concerns or questions about your operation or recovery. D. No smoking! Smoking drastically decreases the chance of a solid fusion. E. Do not take any anti-inflammatory medications (Indocin, Advil, Motrin, Aspirin, Naprosyn, etc.) as these may inhibit the chance of a solid fusion. Tylenol is okay to take for pain. MANAGING PAIN AFTER SPINAL SURGERY 1. Narcotic medication is intended for short-term use and will be provided for surgical pain. Surgical pain usually lasts for a period of 4-6 weeks. Narcotic medication includes Percocet, Vicodin, Darvocet, Tylenol #3 or Lortab. 2. Longer-term pain is more appropriately treated with non-narcotic medication such as Tylenol ES. 3. Muscle spasm is not appropriately treated with narcotics. Muscle relaxers such as Soma, Flexeril or Skelaxin can be used along with Tylenol ES. 4. Remember that we all live with some "aches and pains". This is not unusual or uncommon after an injury or as we get older. a. Back pain is expected and may include muscle spasms for 4 to 6 weeks after surgery. The pain should gradually improve. If the pain worsens for no apparent reason, please contact the office. b. Intermittent leg pain may also be experienced and should not be concerned about unless it worsens for no apparent reason. If so, please contact the office. 5. We will provide appropriate medication within the normal guidelines of their prescribed use. We will also be very cautious and aware of potential abuse and extended duration of patients' medication needs. a. Pain medications are for your comfort and to assist with sleep and rest so that the tissue can heal. They are not provided in order to return to normal activity and should not be used through the day. To do so or worsening pain at night can result from ongoing tissue damage and development of tolerance to the prescribed medicine. 6. Please allow 2-3 days to process refills. Prescriptions will not be mailed but must be picked up at the office. FOLLOW UP VISIT: Keep your scheduled follow-up appointment. Any questions, please call the office at . Prescriptions: New tramadol 50 mg Tablet 50 mg PO Q4H PRN (Reason: Pain, Moderate) Qty: 30 RF: 0 oxycodone 5 mg Tablet 5 mg PO Q4H PRN (Reason: Pain, Severe) Qty: 30 RF: 0 Continue multivitamin Tablet 1 tab PO QAM RF: 0 pravastatin 40 mg Tablet 40 mg PO QPM RF: 0 lisinopril 20 mg Tablet 20 mg PO QPM RF: 0 phenytoin sodium extended [Dilantin Extended] 100 mg Capsule 300 mg PO BID RF: 0 aspirin [Aspir-81] 81 mg Tablet,Delayed Release (Dr/Ec) 81 mg PO QAM RF: 0 folic acid 1 mg Tablet 1 mg PO QAM RF: 0 cholecalciferol (vitamin D3) [Vitamin D3] 1,000 unit Capsule 1,000 unit PO QAM RF: 0 sulindac 200 mg Tablet 200 mg PO TID RF: 0 testosterone 1.62 % (20.25 mg/1.25 gram) Gel In Packet 1 dose topical QAM RF: 0 docusate sodium 100 mg Capsule 100 mg PO QAM RF: 0 cyclobenzaprine 10 mg Tablet 10 mg PO TID PRN (Reason: Spasms) RF: 0 Visit Report Forms: [facility] Portal Stand-Alone Forms: [facility], [facility] [place]/Other Patient Handouts: ED Stockings Storm Discharge Orders: Discharge Order (Routine); Ordered 09/26/18 Ordered By: Addison Donis Admission Data Admit Date/Time: 09/23/18 10:36 Attending Provider: Addison Donis Admit Provider: Addison Donis Primary Care Provider: Meeta Carlisle Other Providers: John Lebron Service: Surgical Services
== END 2018-09-26 13:16 | disposition home or self-care (01) | DRG 454 ==
LOC: ASU 05:36 → 3E 10:36

== ENCOUNTER 2019-03-30 16:02 | Observation (INO) ==
[2019-03-30] MEDS ORDERED: SODIUM CHLORIDE 0.9% 500 ML IV ONE (16:25)
[2019-03-30] MEDS ORDERED: MoRPHine SULFATE 4 MG/ML 1 ML CARP\\VIAL IV STA ×2 (16:25→17:58)
[2019-03-30 16:34] LABS: Basophils # (auto) 0.05 K/uL (0-0.2); Basophils % (auto) 0.5 %; Eosinophils # (auto) 0.06 K/uL (0-0.5); Eosinophils % (auto) 0.6 %; Hemoglobin 14.2 g/dL (14.0-18.0); Immature Granulocytes # (auto) 0.03 K/uL (0.00-0.02); Immature Granulocytes % (auto) 0.3 %; Lymphocytes # (auto) 1.98 K/uL (1.2-3.4); Lymphocytes % (auto) 20.3 %; Mean Corpuscular Hgb Conc 35.5 g/dL (32-36); Mean Corpuscular Volume 89.3 fL (80-100); Mean Platelet Volume 9.4 fL (7.4-10.4); Monocytes # (auto) 1.08 K/uL (0.11-0.59); Monocytes % (auto) 11.1 %; Neutrophils # (auto) 6.54 K/uL (1.4-6.5); Neutrophils % (auto) 67.2 %; Platelet Count 304 K/uL (130-400); RDW Coefficient of Variation 13.6 % (11.5-14.5); RDW Standard Deviation 44.9 fL (36.4-46.3); Red Blood Count 4.48 M/uL (4.7-6.1); White Blood Count 9.74 K/uL (4.8-10.8)
[2019-03-30 16:47] LABS: Alanine Aminotransferase 24 U/L (12-78); Albumin Level 3.9 gm/dl (3.4-5.0); Aspartate Aminotransferase 14 U/L (15-37); BUN Creatinine Ratio 14.8 (10-20); Blood Urea Nitrogen 10 mg/dl (7-18); Calcium 9.3 mg/dl (8.5-10.1); Carbon Dioxide 25 mmol/L (21-32); Chloride 100 mmol/L (98-107); Est GFR (African American) 109.3; Est GFR (Non-African American) 94.3; Glucose 97 mg/dl (70-99); Potassium 4.2 mmol/L (3.5-5.1); Sodium 134 mmol/L (136-145)
[2019-03-30 16:51] LABS: Albumin Globulin Ratio 1.2 (0.9-2); Alkaline Phosphatase 173 U/L (45-117); Bilirubin,Total 0.3 mg/dl (0.2-1); Globulin 3.4 gm/dl (2.5-4.0); Total Protein 7.3 gm/dl (6.4-8.2); Troponin I < 0.015 ng/ml (0-0.045)
[2019-03-30 16:54] LABS: INR 1.1 (0.9-1.1); Prothrombin Time 10.9 Seconds (9.0-12.0)
--- NOTE | 2019-03-30 17:27 | XRay Report ---
SINGLE VIEW PELVIS; 3 VIEWS LEFT FEMUR CLINICAL HISTORY: Fall with left hip pain. FINDINGS: An AP view of the pelvis with AP, frog-leg, and lateral views of the left femur are obtaine d. No prior studies are available for comparison at the time of dictation. The skeletal structures ar e osteopenic. There is no radiographic evidence of fracture involving the hips or bony pelvis. There is no radiographic evidence of left femoral fracture. Mild degenerative change and joint space narrow ing is seen in the hips. Small enthesophytes arise from the anterior superior iliac spines. Degenerat ramesh sclerosis is noted in the sacroiliac joints. Lumbosacral spondylosis is partially imaged with tosha dence of L4-S1 spinal fusion. Phleboliths are observed in the pelvis. There is no evidence of bowel o bstruction. The overlying soft tissues are normal as imaged. Advanced atherosclerotic calcification i s seen in the femoral arteries. The left knee joint is grossly maintained. IMPRESSION: 1. There is no radiographic evidence of fracture involving the hips or bony pelvis. 2. There is no radiographic evidence of left femoral fracture. Electronically signed by: Benito Robledo M.D. 03/30/2019 5:26 PM
[2019-03-30] MEDS ORDERED: IOVERSOL 100ml IV PRN (18:07)
--- NOTE | 2019-03-30 18:10 | CT Scan Report ---
CT SCAN OF THE BRAIN WITHOUT IV CONTRAST CLINICAL HISTORY: Fall. COMPARISON STUDY: CT of the brain dated 06/30/2013. TECHNIQUE: Unenhanced axial CT scan of the brain is performed from the vertex to the skull base. A do se lowering technique was utilized adhering to the principles of ALARA. FINDINGS: Brain parenchyma: There are age-related involutional changes noting mild subcortical and periventric ular microangiopathic change. There is no hemorrhage, mass effect, or evidence of acute territorial i schemia by CT criteria. Khanna-white matter differentiation is preserved. No extra-axial fluid collecti on is seen. Ventricles, sulci, cisterns: Prominent secondary to involutional change. Intracranial vasculature: There is atherosclerotic calcification of the cavernous carotid and vertebr al arteries. Calvarium: The skeletal structures are osteopenic. There is no depressed calvarial fracture. Sinuses and mastoids: The visualized paranasal sinuses are clear. The mastoid air cells are well pneu matized. Orbits: The bony orbits are grossly intact. IMPRESSION: There is no hemorrhage, mass effect, or evidence of acute territorial ischemia by CT samira escalera. Electronically signed by: Benito Robledo M.D. 03/30/2019 5:57 PM
--- NOTE | 2019-03-30 18:41 | CT Scan Report ---
CT SCAN OF THE CERVICAL SPINE CLINICAL HISTORY: Trauma. Fall. COMPARISON STUDY: No priors. TECHNIQUE: CT scan of the cervical spine is performed from the skull base to the upper thoracic spine . Images are reviewed in the axial, sagittal, and coronal planes. IV contrast was not administered fo r this examination. A dose lowering technique was utilized adhering to the principles of ALARA. FINDINGS: Skeletal structures: The skeletal structures are osteopenic. There is no evidence of fracture or subl uxation involving the cervical spine. Vertebral body height and alignment are maintained. There is st raightening of the cervical lordosis. Anterior osteophytes are seen throughout. The odontoid process and lateral masses are intact. The atlantoaxial articulation is preserved noting advanced productive degenerative change. The spinous processes appear intact. There is mild to moderate multilevel cervic al spondylosis. Uncovertebral and facet arthropathy contribute to neural foraminal stenosis at severa l levels. Intervertebral discs: There is moderate disc space narrowing seen at C5-C6 and C6-C7. Mild disc space narrowing is seen at C4-C5. Central canal: Large posterior disc osteophyte complexes at C4-C5, C5-C6, and C6-C7 likely contribute to multilevel acquired compromise of the central canal. Soft tissues: The prevertebral and paraspinous soft tissues are within normal limits. Calcification i s noted throughout the nuchal ligament. There is atherosclerotic calcification of the carotid bulbs. Calvarium: The visualized calvarium at the skull base appears intact. Brain parenchyma: Partially visualized brain parenchyma the skull base is within normal limits. Sinuses and mastoids: The visualized paranasal sinuses are clear. The mastoid air cells are well pneu matized. Lung apices: Clear as visualized. IMPRESSION: 1. There is no evidence of fracture or subluxation involving the cervical spine. 2. Osteopenia and multilevel spondylosis as above. Electronically signed by: Benito Robledo M.D. 03/30/2019 6:40 PM
[2019-03-30 18:52] LABS: Appearance Urine Clear (Clear); Bilirubin Urine Negative (Negative); Blood Urine Negative (Negative); Color Urine Yellow; Glucose Urine UA Negative (Negative); Ketones Urine Negative (Negative); Leukocyte Esterase Urine Negative (Negative); Nitrite Urine Negative (Negative); Protein Urine Negative (Negative); Urobilinogen Urine Negative (Negative); pH Urine 8.5 (4.5-7.5)
--- NOTE | 2019-03-30 19:03 | CT Scan Report ---
CT SCAN OF THE CHEST, ABDOMEN, AND PELVIS WITH IV CONTRAST; CT SCAN OF THE LUMBAR SPINE WITHOUT IV C ONTRAST CLINICAL HISTORY: Trauma. Fall. Low back pain. COMPARISON STUDY: CT scan of the chest, abdomen, and pelvis dated 02/27/2011. Chest x-ray dated 019. TECHNIQUE: Following the IV administration of 93 of [employer] 320, CT scan of the chest, abdomen, and p michaela was performed from the thoracic inlet to the proximal femora. Images are reviewed in the axial, sagittal, and coronal planes. IV contrast was administered without complication. Additionally, unen hanced CT scan of the lumbar spine is performed from the lower thoracic spine to the sacrum. The lumb ar spinal CT images are reviewed in the axial, sagittal, and coronal planes. IV contrast was not admi nistered specifically for the lumbar spine CT A dose lowering technique was utilized adhering to the principles of ALARA. CT DOSE: 3356.50 mGy.cm FINDINGS: CHEST: Thyroid: Imaged portions of the thyroid gland are normal in size and attenuation. Thoracic aorta: The thoracic aorta is normal in caliber and demonstrates bovine variant arch anatomy. No dissection is seen. Heart: The heart is mildly enlarged and without pericardial effusion. There are coronary artery calci fications. The pulmonary trunk is normal in caliber. Lungs and pleural spaces: Evaluation of the lung parenchyma is degraded by motion artifact. There is no airspace consolidation, pleural effusion, or pneumothorax. The trachea and central airways are sourav ar. Scarring/atelectasis is noted at the lung bases. A 2 mm pleural-based nodule in the right upper l obe on image #73 is unchanged from 2011 and abdominal significance. A 3 mm right lower lobe nodule im age #89 was not identified previously. Mediastinum: There is no mediastinal hematoma or lymphadenopathy. Tuyet: Clear. Axillae: There is no axillary lymphadenopathy. Bony thorax: The skeletal structures are osteopenic. There are numerous healed bilateral rib fracture s. Anterior left 3rd, 4th, and 5th rib fractures are age indeterminant. There are mild chronic superi or endplate compression deformities of T3, T4, T5, and T6. The remainder of the bony thorax appears i ntact. No lytic or blastic lesions are identified. ABDOMEN AND PELVIS: Liver: The contrast-enhanced liver is normal in size, contour, and attenuation. There is no intrahepa tic or ductal dilatation. The hepatic veins and portal veins are patent. Scattered hepatic cysts vero ure up to 3.3 cm. Additional subcentimeter hepatic hypodensities also likely represent cysts but are too small for definitive characterization. Gallbladder: Unremarkable. Spleen: Normal in size and attenuation. Pancreas: Unremarkable. Adrenal glands: Unremarkable. Kidneys: The contrast enhanced kidneys are normal in size and without hydronephrosis. The kidneys enh ance symmetrically. A 1.3 cm exophytic cyst is incidentally noted on the left. Abdominal vasculature: The abdominal aorta is normal in course and caliber noting mild atheroscleroti c calcification. Bowel: There is moderate diverticulosis of the left colon without CT evidence of acute diverticulitis . The colon is redundant. No bowel obstruction is identified. A 1.9 cm duodenal lipoma is incidentall y noted on image #[id number]. The appendix is well-visualized and normal. Peritoneum: There is no intraperitoneal free air or abdominal ascites. There is a fat-containing umbi lical hernia. Lymphadenopathy: None. Pelvic viscera: The bladder is distended but otherwise normal in appearance. The prostate gland is di minutive. The seminal vesicles are normal as imaged. A tiny fat-containing right inguinal hernia is n oted. There is asymmetric atrophy of the right gluteal musculature. Skeletal structures: See below for dedicated assessment of the lumbar spine. The skeletal structures are osteopenic. The bony pelvis and proximal femora appear intact. Arthritic change is seen involving the hips, sacroiliac joints, and pubic symphysis. No lytic or blastic lesions are seen. LUMBAR SPINE: Vertebral body height and alignment are maintained throughout the lumbar spine. There i s postoperative change from laminectomy and posterior fusion seen from L3-L5. The orthopedic hardware appears intact. Lucency around the right interpedicular screw of L5 suggests loosening. The transver se processes are intact. Sclerotic change within the right transverse process of L1 is unchanged from 2011 and likely represents a bone island. Anterior and lateral marginal osteophytes are seen through out. There is no evidence of spondylolysis. There has been discectomy at L3-L4 and L4-L5. Moderate di sc space narrowing is seen at the remaining lumbar levels. There is no evidence of large disc herniat ion or high-grade stenosis by CT. A hemitransitional left lumbosacral segment is incidentally noted. The paraspinous soft tissues are within normal limits. IMPRESSION: 1. There is no airspace consolidation, pleural effusion, or pneumothorax. 2. There are age indeterminant left anterior 3rd, 4th, and 5th rib fractures, which may be chronic. C orrelate for point tenderness. 3. There is no evidence of solid organ injury in the abdomen or pelvis. 4. There is no evidence of fracture or malalignment involving the lumbar spine. 5. There is postoperative change from laminectomy and posterior fusion from L3-L5. Lucency around the right interpedicular screw at L5 suggests loosening. 6. Moderate diverticulosis of the left colon without CT evidence of acute diverticulitis. 7. Additional findings as above. Electronically signed by: Benito Robledo M.D. 03/30/2019 7:01 PM
--- NOTE | 2019-03-30 20:33 | History & Physical Report ---
Date of Service March 30, 2019 Assessment & Plan (1) Acute pain of left hip: CT of pelvis was negative. Patient has severe pain to pressure and upon attempting to move even when not weightbearing in bed. Have ordered an MRI of the left hip for further clarification We will consult orthopedic surgery Dr. Mendez. Present on Admission?: Yes (2) Hypertension: Continue lisinopril 20 mg every evening and aspirin 81 mg every morning. Present on Admission?: Yes (3) Seizure disorder: Continue phenytoin 300 mg p.o. twice daily, check a level in the a.m. Present on Admission?: Yes (4) Closed rib fracture: Has no acute symptoms regarding L3, 4, 5 anterior rib fractures that appear chronic on CT Present on Admission?: Yes (5) Hyperlipidemia: Continue pravastatin 20 mg every evening Present on Admission?: Yes (6) Post-traumatic stress disorder: Will use Ativan for sedation for procedures such as MRI Present on Admission?: Yes (7) Testicular hypofunction: Continue topical treatment every a.m. Present on Admission?: Yes (8) Lumbar spinal stenosis: Status post L3-[address] questions possibility of loosening of screw at L5. Not likely associated with symptoms, however, will ask orthopedic comment. Present on Admission?: Yes History of Present Illness Chief Complaint: The patient presents to the emergency department with intermittent sharp positional left hip pain after a fall that occurred prior to arrival. Primary Care Provider: Keyla Burch DO The patient is a 74-year-old male with a past medical history including hyperlipidemia, lumbar spinal stenosis status post fusion September 2018, PTSD, testicular hypofunction, hypertension and obesity, who reports to the emergency department with severe intermittent sharp left hip pain after a fall that occurred prior to arrival. This pain is nothing similar to his radicular pain in the past. He is unable to bear weight due to the severity of the pain when it occurs. Allergies Allergy/AdvReac Type Severity Reaction Status Date / Time fexofenadine Allergy Unknown unknown Verified 03/30/19 18:09 Sulfa (Sulfonamide Allergy Unknown UNKNOWN Verified 03/30/19 18:09 Antibiotics) simvastatin AdvReac Unknown Nausea Verified 03/30/19 18:09 Home Medications Home Medications Medication Instructions Recorded Confirmed Type aspirin [Aspir-81] 81 mg PO QAM 09/01/18 03/30/19 History cholecalciferol (vitamin D3) 1,000 unit PO QAM 09/01/18 03/30/19 History [Vitamin D3] multivitamin 1 tab PO QAM 09/01/18 03/30/19 History pravastatin 20 mg PO QPM 09/01/18 03/30/19 History testosterone 1 dose TOPICAL QAM 09/01/18 03/30/19 History phenytoin sodium extended 100 mg 300 mg PO BID #90 cap 02/01/19 03/30/19 Rx capsule acetaminophen [Tylenol Extra 500 mg PO Q6H PRN 03/30/19 03/30/19 History Strength] cyclobenzaprine 10 mg PO TID PRN 03/30/19 03/30/19 History lisinopril 20 mg PO HS 03/30/19 03/30/19 History Past Med/Surg History Medical History Hyperlipidemia (Chronic) Lumbar spinal stenosis (Chronic) Status post lumbar fusion in September 2018 Osteoarthritis (Acute) Post-traumatic stress disorder (Chronic) Testicular hypofunction (Acute) Chronic back pain TO BILAT LEGS Hyperlipidemia Hypertension Obesity Osteoarthritis Post traumatic stress disorder Seizure Tonic-clonic, 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 No seizure x 3 years. Surgical History Hx of lumbosacral spine surgery L4-L5, L5-S1 decompression fusion in September 2018 History of carpal tunnel release R/L History of tonsillectomy Hx of varicose vein ligation and stripping RIGHT LEG Social History Preferred Language: Nepali Communication Ability: Effective Driller Multiple Spindle Required: No Beliefs That Will Affect Care: None marital status: Current Living Situation: Spouse Other Information That Helps Us Care for You: No Feels Safe at Home: Yes Safety Concerns: Feels Safe At This Time Smoking Status: Former smoker Do You Dip or Chew Tobacco: No Smoking End Date: ~age 24 Second Hand Exposure: No Hx Alcohol Use: Yes Alcohol type: beer Hx Substance Use: No caffeine: Yes (1 cup coffee and 2 sodas per day.) Seatbelt Use: always Review of Systems Review of Systems: The patient denies chest pain, palpitations, shortness of breath, dyspnea on exertion, cough, lower extremity swelling, sore throat, fevers, chills, sweats, weight change, fatigue, nausea, vomiting, diarrhea , constipation, blood in urine or stool, dysuria, urinary frequency or urgency, lightheadedness, dizziness, headache, memory loss, loss of consciousness, rash, abnormal bruising or bleeding, focal or generalized weakness, numbness or tingling in arms, generalized arthralgias or myalgias, back or neck pain, or night sweats. The review of systems is otherwise negative other than for that already noted above, and at least 10 systems have been reviewed. Physical Exam Physical Exam: The patient is awake, alert and oriented 3, well developed and well nourished, normocephalic and atraumatic, lying in bed and in no acute distress. HEENT--PERRL, EOMI, mucous membranes and oropharynx normal. Neck--supple. No JVD. No bruits. Thyroid normal, trachea midline, no adenopathy. Heart--normal S1 and S2. No murmurs, rubs or gallops. Lungs--clear bilaterally, no respiratory distress, no accessory muscle use. Abdomen--normal bowel sounds and soft. Nontender. Nondistended. Extremities--no cyanosis or clubbing. No edema. There are good distal pulses b/l. Dermatologic--normal skin turgor, normal color, no abnormal lymph nodes, no rash. Neurologic--cranial nerves II through XII grossly intact. Rheumatologic-pain on palpation over left greater trochanter and groin. Psychiatric--normal affect. Results & Data Vital Signs (Past 12 Hours) Vital Signs Temp Pulse Pulse Resp BP BP Pulse Ox 03/30/19 18:16 93 H 20 179/94 H 97 03/30/19 16:46 91 H 20 186/104 H 98 03/30/19 16:43 96 03/30/19 16:11 97.7 F 94 H 20 169/99 H 97 Laboratory Results Laboratory Results WBC 9.74 K/uL (4.8-10.8) 03/30/19 16:18 RBC 4.48 M/uL (4.7-6.1) L 03/30/19 16:18 Hgb 14.2 g/dL (14.0-18.0) 03/30/19 16:18 Hct 40.0 % (42-52) L 03/30/19 16:18 MCV 89.3 fL (80-100) 03/30/19 16:18 MCH 31.7 pg (25-34) 03/30/19 16:18 MCHC 35.5 g/dL (32-36) 03/30/19 16:18 RDW Std Deviation 44.9 fL (36.4-46.3) 03/30/19 16:18 RDW Coeff of Clarice 13.6 % (11.5-14.5) 03/30/19 16:18 Plt Count 304 K/uL (130-400) 03/30/19 16:18 MPV 9.4 fL (7.4-10.4) 03/30/19 16:18 Immature Gran % (Auto) 0.3 % 03/30/19 16:18 Neut % (Auto) 67.2 % 03/30/19 16:18 Lymph % (Auto) 20.3 % 03/30/19 16:18 Harvey % (Auto) 11.1 % 03/30/19 16:18 Eos % (Auto) 0.6 % 03/30/19 16:18 Baso % (Auto) 0.5 % 03/30/19 16:18 Immature Gran # (Auto) 0.03 K/uL (0.00-0.02) H 03/30/19 16:18 Neut # (Auto) 6.54 K/uL (1.4-6.5) H 03/30/19 16:18 Lymph # (Auto) 1.98 K/uL (1.2-3.4) 03/30/19 16:18 Harvey # (Auto) 1.08 K/uL (0.11-0.59) H 03/30/19 16:18 Eos # (Auto) 0.06 K/uL (0-0.5) 03/30/19 16:18 Baso # (Auto) 0.05 K/uL (0-0.2) 03/30/19 16:18 PT 10.9 Seconds (9.0-12.0) 03/30/19 16:18 INR 1.1 (0.9-1.1) 03/30/19 16:18 Sodium 134 mmol/L (136-145) L 03/30/19 16:18 Potassium 4.2 mmol/L (3.5-5.1) 03/30/19 16:18 Chloride 100 mmol/L (98-107) 03/30/19 16:18 Carbon Dioxide 25 mmol/L (21-32) 03/30/19 16:18 Anion Gap 9.0 (3-11) 03/30/19 16:18 BUN 10 mg/dl (7-18) 03/30/19 16:18 Creatinine 0.70 mg/dl (0.6-1.4) 03/30/19 16:18 Est Cr Clr Drug Dosing Not Reportable 03/30/19 16:18 Est GFR ( Amer) 109.3 03/30/19 16:18 Est GFR (Non-Af Amer) 94.3 03/30/19 16:18 BUN/Creatinine Ratio 14.8 (10-20) 03/30/19 16:18 Glucose 97 mg/dl (70-99) 03/30/19 16:18 Calcium 9.3 mg/dl (8.5-10.1) 03/30/19 16:18 Total Bilirubin 0.3 mg/dl (0.2-1) 03/30/19 16:18 AST 14 U/L (15-37) L 03/30/19 16:18 ALT 24 U/L (12-78) 03/30/19 16:18 Alkaline Phosphatase 173 U/L (45-117) H 03/30/19 16:18 Troponin I < 0.015 ng/ml (0-0.045) 03/30/19 16:18 Total Protein 7.3 gm/dl (6.4-8.2) 03/30/19 16:18 Albumin 3.9 gm/dl (3.4-5.0) 03/30/19 16:18 Globulin 3.4 gm/dl (2.5-4.0) 03/30/19 16:18 Albumin/Globulin Ratio 1.2 (0.9-2) 03/30/19 16:18 Urine Color Yellow 03/30/19 18:44 Urine Appearance Clear (Clear) 03/30/19 18:44 Urine pH 8.5 (4.5-7.5) H 03/30/19 18:44 Ur Specific Clarion 1.020 (1.000-1.030) 03/30/19 18:44 Urine Protein Negative (Negative) 03/30/19 18:44 Urine Glucose (UA) Negative (Negative) 03/30/19 18:44 Urine Ketones Negative (Negative) 03/30/19 18:44 Urine Blood Negative (Negative) 03/30/19 18:44 Urine Nitrite Negative (Negative) 03/30/19 18:44 Urine Bilirubin Negative (Negative) 03/30/19 18:44 Urine Urobilinogen Negative (Negative) 03/30/19 18:44 Ur Leukocyte Esterase Negative (Negative) 03/30/19 18:44 Diagnostic Findings [place], [place] [phone] CT Scan Report Patient: HAZEL CHANDLER Date: 03/30/19 MR#: [id number]: [id number] [facility] Acct ID:[id number]: Date: 1945[facility] Zip: [place] [address] Age: 74Location: ED Sex: M Room/Bed: Att Phy: Diagnosis: FALL, BACK PAIN, HIP & KNEE PAIN Camryn Phy: Keyla Burch, DOService Date: 03/30/19 Fam Phy: Interpreting Phy: Benito Robledo MD Admit Phy: Ordering Phy: John Kim, cc: ~ CT SCAN OF THE CHEST, ABDOMEN, AND PELVIS WITH IV CONTRAST; CT SCAN OF THE LUMBAR SPINE WITHOUT IV CONTRAST CLINICAL HISTORY: Trauma. Fall. Low back pain. COMPARISON STUDY: CT scan of the chest, abdomen, and pelvis dated 02/27/2011. Chest x-ray dated 09/08/2018. TECHNIQUE: Following the IV administration of 93 of Optiray 320, CT scan of the chest, abdomen, and pelvis was performed from the thoracic inlet to the proximal femora. Images are reviewed in the axial, sagittal, and coronal planes. IV contrast was administered without complication. Additionally, unenhanced CT scan of the lumbar spine is performed from the lower thoracic spine to the sacrum. The lumbar spinal CT images are reviewed in the axial, sagittal, and coronal planes. IV contrast was not administered specifically for the lumbar spine CT A dose lowering technique was utilized adhering to the principles of ALARA. CT DOSE: 3356.50 mGy.cm FINDINGS: CHEST: Thyroid: Imaged portions of the thyroid gland are normal in size and attenuation. Thoracic aorta: The thoracic aorta is normal in caliber and demonstrates bovine variant arch anatomy. No dissection is seen. Heart: The heart is mildly enlarged and without pericardial effusion. There are coronary artery calcifications. The pulmonary trunk is normal in caliber. Lungs and pleural spaces: Evaluation of the lung parenchyma is degraded by motion artifact. There is no airspace consolidation, pleural effusion, or pneumothorax. The trachea and central airways are clear. Scarring/atelectasis is noted at the lung bases. A 2 mm pleural-based nodule in the right upper lobe on image #73 is unchanged from 2011 and abdominal significance. A 3 mm right lower lobe nodule image #94 was not identified previously. Mediastinum: There is no mediastinal hematoma or lymphadenopathy. Tuyet: Clear. Axillae: There is no axillary lymphadenopathy. Bony thorax: The skeletal structures are osteopenic. There are numerous healed bilateral rib fractures. Anterior left 3rd, 4th, and 5th rib fractures are age indeterminant. There are mild chronic superior endplate compression deformities of T3, T4, T5, and T6. The remainder of the bony thorax appears intact. No lytic or blastic lesions are identified. ABDOMEN AND PELVIS: Liver: The contrast-enhanced liver is normal in size, contour, and attenuation. There is no intrahepatic or ductal dilatation. The hepatic veins and portal veins are patent. Scattered hepatic cysts measure up to 3.3 cm. Additional subcentimeter hepatic hypodensities also likely represent cysts but are too small for definitive characterization. Gallbladder: Unremarkable. Spleen: Normal in size and attenuation. Pancreas: Unremarkable. Adrenal glands: Unremarkable. Kidneys: The contrast enhanced kidneys are normal in size and without hydronephrosis. The kidneys enhance symmetrically. A 1.3 cm exophytic cyst is incidentally noted on the left. Abdominal vasculature: The abdominal aorta is normal in course and caliber noting mild atherosclerotic calcification. Bowel: There is moderate diverticulosis of the left colon without CT evidence of acute diverticulitis. The colon is redundant. No bowel obstruction is identified. A 1.9 cm duodenal lipoma is incidentally noted on image #198. The appendix is well-visualized and normal. Peritoneum: There is no intraperitoneal free air or abdominal ascites. There is a fat-containing umbilical hernia. Lymphadenopathy: None. Pelvic viscera: The bladder is distended but otherwise normal in appearance. The prostate gland is diminutive. The seminal vesicles are normal as imaged. A tiny fat-containing right inguinal hernia is noted. There is asymmetric atrophy of the right gluteal musculature. Skeletal structures: See below for dedicated assessment of the lumbar spine. The skeletal structures are osteopenic. The bony pelvis and proximal femora appear intact. Arthritic change is seen involving the hips, sacroiliac joints, and pubic symphysis. No lytic or blastic lesions are seen. LUMBAR SPINE: Vertebral body height and alignment are maintained throughout the lumbar spine. There is postoperative change from laminectomy and posterior fusion seen from L3-L5. The orthopedic hardware appears intact. Lucency around the right interpedicular screw of L5 suggests loosening. The transverse processes are intact. Sclerotic change within the right transverse process of L1 is unchanged from 2011 and likely represents a bone island. Anterior and lateral marginal osteophytes are seen throughout. There is no evidence of spondylolysis. There has been discectomy at L3-L4 and L4-L5. Moderate disc space narrowing is seen at the remaining lumbar levels. There is no evidence of large disc herniation or high-grade stenosis by CT. A hemitransitional left lumbosacral segment is incidentally noted. The paraspinous soft tissues are within normal limits. IMPRESSION: 1. There is no airspace consolidation, pleural effusion, or pneumothorax. 2. There are age indeterminant left anterior 3rd, 4th, and 5th rib fractures, which may be chronic. Correlate for point tenderness. 3. There is no evidence of solid organ injury in the abdomen or pelvis. 4. There is no evidence of fracture or malalignment involving the lumbar spine. 5. There is postoperative change from laminectomy and posterior fusion from L3- L5. Lucency around the right interpedicular screw at L5 suggests loosening. 6. Moderate diverticulosis of the left colon without CT evidence of acute diverticulitis. 7. Additional findings as above. Electronically signed by: Benito Robledo M.D. 03/30/2019 7:01 PM Dictated: 03/30/191839 Transcribed: 03/30/191839 [place], [place] [phone] CT Scan Report Patient: HAZEL CHANDLER Date: 03/30/19 MR#: [id number]: [id number] [facility] Acct ID:[id number]: Date: 1945[facility] Zip: [place] [address] Age: 74Location: ED Sex: M Room/Bed: Att Phy: Diagnosis: FALL, BACK PAIN, HIP & KNEE PAIN Camryn Phy: Keyla Burch, DOService Date: 03/30/19 Fam Phy: Interpreting Phy: Benito Robledo MD Admit Phy: Ordering Phy: John Kim, DO cc: ~ CT SCAN OF THE BRAIN WITHOUT IV CONTRAST CLINICAL HISTORY: Fall. COMPARISON STUDY: CT of the brain dated 06/30/2013. TECHNIQUE: Unenhanced axial CT scan of the brain is performed from the vertex to the skull base. A dose lowering technique was utilized adhering to the princi ples of ALA. FINDINGS: Brain parenchyma: There are age-related involutional changes noting mild subcortical and periventricular microangiopathic change. There is no hemorrhage, mass effect, or evidence of acute territorial ischemia by CT criteria. Khanna- white matter differentiation is preserved. No extra-axial fluid collection is seen. Ventricles, sulci, cisterns: Prominent secondary to involutional change. Intracranial vasculature: There is atherosclerotic calcification of the cavernous carotid and vertebral arteries. Calvarium: The skeletal structures are osteopenic. There is no depressed calvarial fracture. Sinuses and mastoids: The visualized paranasal sinuses are clear. The mastoid air cells are well pneumatized. Orbits: The bony orbits are grossly intact. [facility], [place] [phone] CT Scan Report Patient: HAZEL CHANDLER Date: 03/30/19 MR#: [id number]: [address] [facility] Acct ID:[id number]: Date: 1945[facility] Zip: [place] [address] Age: 74Location: ED Sex: M Room/Bed: Att Phy: Diagnosis: FALL, BACK PAIN, HIP & KNEE PAIN Camryn Phy: Keyla Burhc, DOService Date: 03/30/19 Fam Phy: Interpreting Phy: Benito Robledo MD Admit Phy: Ordering Phy: John Kim DO cc: ~ CT SCAN OF THE CERVICAL SPINE CLINICAL HISTORY: Trauma. Fall. COMPARISON STUDY: No priors. TECHNIQUE: CT scan of the cervical spine is performed from the skull base to the upper thoracic spine. Images are reviewed in the axial, sagittal, and coronal planes. IV contrast was not administered for this examination. A dose lowering technique was utilized adhering to the principles of ALARA. FINDINGS: Skeletal structures: The skeletal structures are osteopenic. There is no evidence of fracture or subluxation involving the cervical spine. Vertebral body height and alignment are maintained. There is straightening of the cervical lordosis. Anterior osteophytes are seen throughout. The odontoid process and lateral masses are intact. The atlantoaxial articulation is preserved noting advanced productive degenerative change. The spinous processes appear intact. There is mild to moderate multilevel cervical spondylosis. Uncovertebral and facet arthropathy contribute to neural foraminal stenosis at several levels. Intervertebral discs: There is moderate disc space narrowing seen at C5-C6 and C6-C7. Mild disc space narrowing is seen at C4-C5. Central canal: Large posterior disc osteophyte complexes at C4-C5, C5-C6, and C6-C7 likely contribute to multilevel acquired compromise of the central canal. Soft tissues: The prevertebral and paraspinous soft tissues are within normal limits. Calcification is noted throughout the nuchal ligament. There is atherosclerotic calcification of the carotid bulbs. Calvarium: The visualized calvarium at the skull base appears intact. Brain parenchyma: Partially visualized brain parenchyma the skull base is within normal limits. Sinuses and mastoids: The visualized paranasal sinuses are clear. The mastoid air cells are well pneumatized. Lung apices: Clear as visualized. IMPRESSION: 1. There is no evidence of fracture or subluxation involving the cervical spine. 2. Osteopenia and multilevel spondylosis as above. Electronically signed by: Benito Robledo M.D. 03/30/2019 6:40 PM Dictated: 03/30/191835 Transcribed: 03/30/191835 [facility], [place] [phone] Fluoroscopy Report Patient: HAZEL CHANDLER Date: 09/23/18 MR#: [id number]: [id number] [facility] Acct ID:[id number]: Date: 1945[facility] Zip: [place] [address] Age: 73Location: ASU Sex: M Room/Bed: Att Phy: Addison Donis D.O.Diagnosis: Spinal Stenosis Camryn Phy: Meeta Carlisle, MDService Date: 09/23/18 Fam Phy: Meeta Carlisle MDInterpreting Phy: Dominic Burgess MD Admit Phy: Ordering Phy: Addison Donis D.O. cc: ~ LUMBAR SPINE, INTRAOPERATIVE FLUOROSCOPY HISTORY: L4 S1 decompression and fusion. FLUOROSCOPY TIME: 18 seconds. FINDINGS: Intraoperative fluoroscopy was provided for the lumbar spine. 2 fluoroscopic spot images were obtained. Posterior decompression and fusion from L4 through S1 with pedicle screws and rods. The hardware appears intact. IMPRESSION: Fluoroscopy provided for a L4-S1 posterior decompression and fusion with pedicle screws and rods.. Electronically signed by: Dominic Burgess M.D. 09/23/2018 10:38 AM Dictated: 09/23/18 1038 Transcribed: 09/23/18 1038 [facility], [place] [phone] XRay Report Patient: HAZEL CHANDLER Date: 03/30/19 MR#: [id number]: [id number] [facility] Acct ID:[id number]: Date: 1945[facility] Zip: [place] [address] Age: 74Location: ED Sex: M Room/Bed: Att Phy: Diagnosis: FALL, BACK PAIN, HIP & KNEE PAIN Camryn Phy: Keyla Burch, DOService Date: 03/30/19 Fam Phy: Interpreting Phy: Benito Robledo MD Admit Phy: Ordering Phy: John Kim DO cc: ~ SINGLE VIEW PELVIS; 3 VIEWS LEFT FEMUR CLINICAL HISTORY: Fall with left hip pain. FINDINGS: An AP view of the pelvis with AP, frog-leg, and lateral views of the left femur are obtained. No prior studies are available for comparison at the time of dictation. The skeletal structures are osteopenic. There is no radiographic evidence of fracture involving the hips or bony pelvis. There is no radiographic evidence of left femoral fracture. Mild degenerative change and joint space narrowing is seen in the hips. Small enthesophytes arise from the anterior superior iliac spines. Degenerative sclerosis is noted in the sacroiliac joints. Lumbosacral spondylosis is partially imaged with evidence of L4-S1 spinal fusion. Phleboliths are observed in the pelvis. There is no evidence of bowel obstruction. The overlying soft tissues are normal as imaged. Advanced atherosclerotic calcification is seen in the femoral arteries. The left knee joint is grossly maintained. IMPRESSION: 1. There is no radiographic evidence of fracture involving the hips or bony pelvis. 2. There is no radiographic evidence of left femoral fracture. Electronically signed by: Benito Robledo M.D. 03/30/2019 5:26 PM Dictated: 03/30/19 1724 Transcribed: 03/30/19 1724 Code Status & VTE Plan Code Status Full code VTE Prophylaxis Plan VTE Prophylaxis will be ordered: Yes PG Care Time/CCT Total # of Minutes Spent Total Time Spent with Patient: Total time spent is greater than 50% in coordination of care (as documented) at patient's floor/unit and/or counseling patient: (1) Closed rib fracture Encounter type: initial encounter Laterality: bilateral Rib fracture type: multiple ribs Qualified Code(s): S22.43XA - Multiple fractures of ribs, bilateral, initial encounter for closed fracture
[2019-03-30] MEDS ORDERED: ACETAMINOPHEN 500 MG TAB PO PRN (22:04)
[2019-03-30] MEDS ORDERED: ONDANSETRON INJ 2 MG/ML 2 ML VIAL IV PRN (22:04)
[2019-03-30] MEDS ORDERED: ACETAMINOPHEN 325 MG TAB PO PRN (22:04)
[2019-03-30] MEDS ORDERED: ACETAMINOPHEN 1,000 MG/100 ML VIAL IV PRN (22:04)
[2019-03-30] MEDS ORDERED: CYCLOBENZAPRINE HCL 10 MG TAB PO PRN (22:04)
[2019-03-30] MEDS ORDERED: ALUMINUM/MAGNESIUM SUSP 30 ML UDC PO PRN (22:04)
[2019-03-30] MEDS ORDERED: MAGNESIUM HYDROXIDE SUSP 30 ML UDC PO PRN (22:04)
[2019-03-30] MEDS ORDERED: LISINOPRIL 20 MG TAB PO SCH (22:04)
[2019-03-30] MEDS ORDERED: PRAVASTATIN SOD 20 MG TAB PO SCH (22:04)
[2019-03-30] MEDS ORDERED: KETOROLAC TROMETHAMINE 15 MG/ML VIAL IV PRN (22:23)
[2019-03-30] MEDS: HEPARIN SOD 5,000 UNIT/0.5 ML VIAL SQ SCH (22:42)
[2019-03-30] MEDS: PHENYTOIN SODIUM ER 100 MG CAP PO SCH (22:42)
--- NOTE | 2019-03-30 23:16 | Emergency Department Note ---
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 The patient states that he was getting up in his car and tried to swing on a bee, tripped, and fell. The patient reports that he fell on his left side. He states that he is unable to walk. He reports that he has left hip pain and back pain. He denies any chest pain, abdominal pain, numbness or tingling in his legs. He states that he has a history of back surgery in September. Home Medications Home Medications Medication Instructions Recorded Confirmed Type aspirin [Aspir-81] 81 mg PO QAM 09/01/18 03/30/19 History cholecalciferol (vitamin D3) 1,000 unit PO QAM 09/01/18 03/30/19 History [Vitamin D3] multivitamin 1 tab PO QAM 09/01/18 03/30/19 History pravastatin 20 mg PO QPM 09/01/18 03/30/19 History testosterone 1 dose TOPICAL QAM 09/01/18 03/30/19 History phenytoin sodium extended 100 mg 300 mg PO BID #90 cap 02/01/19 03/30/19 Rx capsule acetaminophen [Tylenol Extra 500 mg PO Q6H PRN 03/30/19 03/30/19 History Strength] cyclobenzaprine 10 mg PO TID PRN 03/30/19 03/30/19 History lisinopril 20 mg PO HS 03/30/19 03/30/19 History Allergies Allergy/AdvReac Type Severity Reaction Status Date / Time fexofenadine Allergy Unknown unknown Verified 03/30/19 18:09 Sulfa (Sulfonamide Allergy Unknown UNKNOWN Verified 03/30/19 18:09 Antibiotics) simvastatin AdvReac Unknown Nausea Verified 03/30/19 18:09 Past Med/Surg History Medical History Hyperlipidemia (Chronic) Lumbar spinal stenosis (Chronic) Status post lumbar fusion in September 2018 Osteoarthritis (Acute) Post-traumatic stress disorder (Chronic) Testicular hypofunction (Acute) Chronic back pain TO BILAT LEGS Hyperlipidemia Hypertension Obesity Osteoarthritis Post traumatic stress disorder Seizure Tonic-clonic, 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 No seizure x 3 years. Surgical History Hx of lumbosacral spine surgery L4-L5, L5-S1 decompression fusion in September 2018 History of carpal tunnel release R/L History of tonsillectomy Hx of varicose vein ligation and stripping RIGHT LEG Social History Preferred Language: Serbian Communication Ability: Effective Manager Utilization Management Required: No Beliefs That Will Affect Care: None marital status: Current Living Situation: Spouse Other Information That Helps Us Care for You: No Feels Safe at Home: Yes Safety Concerns: Feels Safe At This Time Smoking Status: Former smoker Do You Dip or Chew Tobacco: No Smoking End Date: ~age 24 Second Hand Exposure: No Hx Alcohol Use: Yes Alcohol type: beer Hx Substance Use: No caffeine: Yes (1 cup coffee and 2 sodas per day.) Seatbelt Use: always Review of Systems See HPI for pertinent positives & negatives. and A total of 10 systems reviewed and were otherwise negative Physical Exam Vital Signs Vital Signs - 24 hr 03/30/19 16:11 03/30/19 16:43 03/30/19 16:46 Temperature 36.5 C Temperature Source Oral Sepsis Recent Fever Within 48 Hours No Sepsis New/Unexplained Change in Mental Status No Sepsis Action Taken by Nursing No Action Required Pulse Rate 94 H Pulse Rate [Apical] 91 H Respiratory Rate 20 20 Blood Pressure 169/99 H Blood Pressure [Left Arm] 186/104 H Blood Pressure Mean 122 Blood Pressure Mean [Left Arm] 131 Pulse Oximetry 97 96 98 Oxygen Delivery Method Room Air Room Air Room Air 03/30/19 18:16 Temperature Temperature Source Sepsis Recent Fever Within 48 Hours Sepsis New/Unexplained Change in Mental Status Sepsis Action Taken by Nursing Pulse Rate Pulse Rate [Apical] 93 H Respiratory Rate 20 Blood Pressure Blood Pressure [Left Arm] 179/94 H Blood Pressure Mean Blood Pressure Mean [Left Arm] 122 Pulse Oximetry 97 Oxygen Delivery Method Room Air GENERAL: alert, well appearing, well nourished, no distress, non-toxic HEAD: normal cephalic, atraumatic EYE EXAM: normal conjunctiva OROPHARYNX: no exudate, no erythema, lips, buccal mucosa, and tongue normal and mucous membranes are moist EARS: TMs clear b/l NECK: supple, no nuchal rigidity, no adenopathy, non-tender CHEST: stable to compression anteriorly and posteriorly, severe chest wall pain LUNGS: clear to auscultation. Normal chest wall mechanics HEART: no murmurs, S1 normal and S2 normal ABDOMEN: abdomen soft, left abdomen tenderness, normo-active bowel sounds, no masses, no rebound or guarding. PELVIS: stable to compression anteriorly and posteriorly but tenderness over the left hip BACK: Back is symmetrical on inspection and there is no deformity, lower midline lumbar pain, no CVA tenderness. UPPER EXTREMITIES: full active and passive range of motion of all joints without tenderness to palpation LOWER EXTREMITIES: full active and passive range of motion of all joints with the exception of left proximal femur tenderness to palpation NEURO EXAM: Normal sensorium, cranial nerves II-XII grossly intact, normal speech, no gross weakness of arms, no gross weakness of legs. GCS: 15. Course 1620: The patient was evaluated in room C2A, and a complete history and physical examination were performed. 2010: I reviewed the patient's case with Dr. Felix [facility] Hospitalist. He will evaluate the patient for further management. Consultations Consultation #1: Dr. Felix [facility] Hospitalist Time: 20:10 Administered Medications Heparin Sodium (Porcine) (Heparin Sodium (Porcine)) 5,000 units SQ Q12 DIANNA Stop: 04/29/19 22:03 Last Admin: 03/30/19 22:42 Dose: 5,000 units Documented by: [id number] Cosigned by: [id number] Ioversol (Optiray 320 100ml) 93 ml IV ONCE PRN PRN Reason: Interaction Checking Stop: 04/03/19 18:06 Last Admin: 03/30/19 18:08 Dose: 93 ml Documented by: [id number] Ketorolac Tromethamine (Toradol) 15 mg IV Q6H PRN PRN Reason: Pain Stop: 04/04/19 22:22 Last Admin: 03/30/19 22:26 Dose: 15 mg Documented by: [id number] Lisinopril (Zestril) 20 mg PO HS DIANNA Stop: 04/29/19 22:03 Last Admin: 07/25/19 22:42 Dose: 20 mg Documented by: [id number] Phenytoin Sodium (Dilantin Er) 300 mg PO BID DIANNA Stop: 04/29/19 22:03 Last Admin: 03/30/19 22:42 Dose: 300 mg Documented by: [id number] Pravastatin Sodium (Pravachol) 20 mg PO QPM DIANNA Stop: 04/29/19 22:03 Last Admin: 03/30/19 22:42 Dose: 20 mg Documented by: [id number] Discontinued Medications Sodium Chloride (Nss) 500 mls @ 999 mls/hr IV .Q31M ONE Stop: 03/30/19 16:55 Last Infusion: 03/30/19 17:13 Dose: 0 mls/hr Documented by: [id number] Admin: 03/30/19 16:42 Dose: 999 mls/hr Documented by: [id number] Morphine Sulfate (Morphine Sulfate) 4 mg IV NOW STA Stop: 03/30/19 16:26 Last Admin: 03/30/19 16:42 Dose: 4 mg Documented by: [id number] Morphine Sulfate (Morphine Sulfate) 4 mg IV NOW STA Stop: 03/30/19 17:59 Last Admin: 03/30/19 18:15 Dose: 4 mg Documented by: [id number] Medical Decision Making Differential Diagnosis Differential diagnoses include major intracranial, cervical, spinal, thoracic, abdominal, pelvic and neurologic injury. Fracture, contusion, sprain, strain, laceration, abrasions included as well. Medical Records Attestation: I reviewed the patient's medical records. Home Medications Current Medication List: was personally reviewed by me Laboratory Data Attestation: I reviewed the patient's lab results. Result diagrams: 03/30/19 16:18 03/30/19 16:18 Lab Results 03/30/19 03/30/19 03/30/19 Range/Units 16:18 16:18 16:18 WBC 9.74 (4.8-10.8) K/uL RBC 4.48 L (4.7-6.1) M/uL Hgb 14.2 (14.0-18.0) g/dL Hct 40.0 L (42-52) % MCV 89.3 (80-100) fL MCH 31.7 (25-34) pg MCHC 35.5 (32-36) g/dL RDW Std Deviation 44.9 (36.4-46.3) fL RDW Coeff of Clarice 13.6 (11.5-14.5) % Plt Count 304 (130-400) K/uL MPV 9.4 (7.4-10.4) fL Immature Gran % (Auto) 0.3 % Neut % (Auto) 67.2 % Lymph % (Auto) 20.3 % [place] % (Auto) 11.1 % Eos % (Auto) 0.6 % Baso % (Auto) 0.5 % Immature Gran # (Auto) 0.03 H (0.00-0.02) K/uL Neut # (Auto) 6.54 H (1.4-6.5) K/uL Lymph # (Auto) 1.98 (1.2-3.4) K/uL [place] # (Auto) 1.08 H (0.11-0.59) K/uL Eos # (Auto) 0.06 (0-0.5) K/uL Baso # (Auto) 0.05 (0-0.2) K/uL PT 10.9 (9.0-12.0) Seconds INR 1.1 (0.9-1.1) Sodium 134 L (136-145) mmol/L Potassium 4.2 (3.5-5.1) mmol/L Chloride 100 (98-107) mmol/L Carbon Dioxide 25 (21-32) mmol/L Anion Gap 9.0 (3-11) BUN 10 (7-18) mg/dl Creatinine 0.70 (0.6-1.4) mg/dl Est Cr Clr Drug Dosing Not Reportable Est GFR ( Amer) 109.3 Est GFR (Non-Af Amer) 94.3 BUN/Creatinine Ratio 14.8 (10-20) Glucose 97 (70-99) mg/dl Calcium 9.3 (8.5-10.1) mg/dl Total Bilirubin 0.3 (0.2-1) mg/dl AST 14 L (15-37) U/L ALT 24 (12-78) U/L Alkaline Phosphatase 173 H (45-117) U/L Troponin I < 0.015 (0-0.045) ng/ml Total Protein 7.3 (6.4-8.2) gm/dl Albumin 3.9 (3.4-5.0) gm/dl Globulin 3.4 (2.5-4.0) gm/dl Albumin/Globulin Ratio 1.2 (0.9-2) Urine Color Urine Appearance (Clear) Urine pH (4.5-7.5) Ur Specific [place] (1.000-1.030) Urine Protein (Negative) Urine Glucose (UA) (Negative) Urine Ketones (Negative) Urine Blood (Negative) Urine Nitrite (Negative) Urine Bilirubin (Negative) Urine Urobilinogen (Negative) Ur Leukocyte Esterase (Negative) 03/30/19 Range/Units 18:44 WBC (4.8-10.8) K/uL RBC (4.7-6.1) M/uL Hgb (14.0-18.0) g/dL Hct (42-52) % MCV (80-100) fL MCH (25-34) pg MCHC (32-36) g/dL RDW Std Deviation (36.4-46.3) fL RDW Coeff of Clarice (11.5-14.5) % Plt Count (130-400) K/uL MPV (7.4-10.4) fL Immature Gran % (Auto) % Neut % (Auto) % Lymph % (Auto) % [place] % (Auto) % Eos % (Auto) % Baso % (Auto) % Immature Gran # (Auto) (0.00-0.02) K/uL Neut # (Auto) (1.4-6.5) K/uL Lymph # (Auto) (1.2-3.4) K/uL [place] # (Auto) (0.11-0.59) K/uL Eos # (Auto) (0-0.5) K/uL Baso # (Auto) (0-0.2) K/uL PT (9.0-12.0) Seconds INR (0.9-1.1) Sodium (136-145) mmol/L Potassium (3.5-5.1) mmol/L Chloride (98-107) mmol/L Carbon Dioxide (21-32) mmol/L Anion Gap (3-11) BUN (7-18) mg/dl Creatinine (0.6-1.4) mg/dl Est Cr Clr Drug Dosing Est GFR ( Amer) Est GFR (Non-Af Amer) BUN/Creatinine Ratio (10-20) Glucose (70-99) mg/dl Calcium (8.5-10.1) mg/dl Total Bilirubin (0.2-1) mg/dl AST (15-37) U/L ALT (12-78) U/L Alkaline Phosphatase (45-117) U/L Troponin I (0-0.045) ng/ml Total Protein (6.4-8.2) gm/dl Albumin (3.4-5.0) gm/dl Globulin (2.5-4.0) gm/dl Albumin/Globulin Ratio (0.9-2) Urine Color Yellow Urine Appearance Clear (Clear) Urine pH 8.5 H (4.5-7.5) Ur Specific [place] 1.020 (1.000-1.030) Urine Protein Negative (Negative) Urine Glucose (UA) Negative (Negative) Urine Ketones Negative (Negative) Urine Blood Negative (Negative) Urine Nitrite Negative (Negative) Urine Bilirubin Negative (Negative) Urine Urobilinogen Negative (Negative) Ur Leukocyte Esterase Negative (Negative) Imaging Data Radiologist's Impression: Radiology results as stated below per my review and the radiologist's interpretation: CT SCAN OF THE CHEST, ABDOMEN, AND PELVIS WITH IV CONTRAST; CT SCAN OF THE L UMBAR SPINE WITHOUT IV CONTRAST CLINICAL HISTORY: Trauma. Fall. Low back pain. COMPARISON STUDY: CT scan of the chest, abdomen, and pelvis dated 02/27/2011. Chest x-ray dated 09/08/2018. TECHNIQUE: Following the IV administration of 93 of Optiray 320, CT scan of the chest, abdomen, and pelvis was performed from the thoracic inlet to the proximal femora. Images are reviewed in the axial, sagittal, and coronal planes. IV contrast was administered without complication. Additionally, unenhanced CT scan of the lumbar spine is performed from the lower thoracic spine to the sacr um. The lumbar spinal CT images are reviewed in the axial, sagittal, and coronal planes. IV contrast was not administered specifically for the lumbar spine CT A dose lowering technique was utilized adhering to the principles of ALARA. CT DOSE: 3356.50 mGy.cm FINDINGS: CHEST: Thyroid: Imaged portions of the thyroid gland are normal in size and attenuation. Thoracic aorta: The thoracic aorta is normal in caliber and demonstrates bovine variant arch anatomy. No dissection is seen. Heart: The heart is mildly enlarged and without pericardial effusion. There are coronary artery calcifications. The pulmonary trunk is normal in caliber. Lungs and pleural spaces: Evaluation of the lung parenchyma is degraded by motion artifact. There is no airspace consolidation, pleural effusion, or pneumo thorax. The trachea and central airways are clear. Scarring/atelectasis is noted at the lung bases. A 2 mm pleural-based nodule in the right upper lobe on image #73 is unchanged from 2011 and abdominal significance. A 3 mm right lower lobe nodule image #94 was not identified previously. Mediastinum: There is no mediastinal hematoma or lymphadenopathy. Tuyet: Clear. Axillae: There is no axillary lymphadenopathy. Bony thorax: The skeletal structures are osteopenic. There are numerous healed bilateral rib fractures. Anterior left 3rd, 4th, and 5th rib fractures are age indeterminant. There are mild chronic superior endplate compression deformities of T3, T4, T5, and T6. The remainder of the bony thorax appears intact. No lytic or blastic lesions are identified. ABDOMEN AND PELVIS: Liver: The contrast-enhanced liver is normal in size, contour, and attenuation. There is no intrahepatic or ductal dilatation. The hepatic veins and portal veins are patent. Scattered hepatic cysts measure up to 3.3 cm. Additional subcentimeter hepatic hypodensities also likely represent cysts but are too small for definitive characterization. Gallbladder: Unremarkable. Spleen: Normal in size and attenuation. Pancreas: Unremarkable. Adrenal glands: Unremarkable. Kidneys: The contrast enhanced kidneys are normal in size and without hydronephrosis. The kidneys enhance symmetrically. A 1.3 cm exophytic cyst is incidentally noted on the left. Abdominal vasculature: The abdominal aorta is normal in course and caliber noting mild atherosclerotic calcification. Bowel: There is moderate diverticulosis of the left colon without CT evidence of acute diverticulitis. The colon is redundant. No bowel obstruction is identified. A 1.9 cm duodenal lipoma is incidentally noted on image #198. The appendix is well-visualized and normal. Peritoneum: There is no intraperitoneal free air or abdominal ascites. There is a fat-containing umbilical hernia. Lymphadenopathy: None. Pelvic viscera: The bladder is distended but otherwise normal in appearance. The prostate gland is diminutive. The seminal vesicles are normal as imaged. A tiny fat-containing right inguinal hernia is noted. There is asymmetric atrophy of the right gluteal musculature. Skeletal structures: See below for dedicated assessment of the lumbar spine. The skeletal structures are osteopenic. The bony pelvis and proximal femora appear intact. Arthritic change is seen involving the hips, sacroiliac joints, and pubic symphysis. No lytic or blastic lesions are seen. LUMBAR SPINE: Vertebral body height and alignment are maintained throughout the lumbar spine. There is postoperative change from laminectomy and posterior fusi on seen from L3-L5. The orthopedic hardware appears intact. Lucency around the right interpedicular screw of L5 suggests loosening. The transverse processes are intact. Sclerotic change within the right transverse process of L1 is unchanged from 2011 and likely represents a bone island. Anterior and lateral marginal osteophytes are seen throughout. There is no evidence of spondylolysis. There has been discectomy at L3-L4 and L4-L5. Moderate disc space narrowing is seen at the remaining lumbar levels. There is no evidence of large disc herniation or high-grade stenosis by CT. A hemitransitional left lumbosacral segment is incidentally noted. The paraspinous soft tissues are within normal limits. IMPRESSION: 1. There is no airspace consolidation, pleural effusion, or pneumothorax. 2. There are age indeterminant left anterior 3rd, 4th, and 5th rib fractures, which may be chronic. Correlate for point tenderness. 3. There is no evidence of solid organ injury in the abdomen or pelvis. 4. There is no evidence of fracture or malalignment involving the lumbar spine. 5. There is postoperative change from laminectomy and posterior fusion from L3- L5. Lucency around the right interpedicular screw at L5 suggests loosening. 6. Moderate diverticulosis of the left colon without CT evidence of acute diverticulitis. 7. Additional findings as above. Electronically signed by: Benito Robledo M.D. 03/30/2019 7:[address] SCAN OF THE CERVICAL SPINE CLINICAL HISTORY: Trauma. Fall. COMPARISON STUDY: No priors. TECHNIQUE: CT scan of the cervical spine is performed from the skull base to the upper thoracic spine. Images are reviewed in the axial, sagittal, and coronal planes. IV contrast was not administered for this examination. A dose lowering technique was utilized adhering to the principles of ALARA. FINDINGS: Skeletal structures: The skeletal structures are osteopenic. There is no evidence of fracture or subluxation involving the cervical spine. Vertebral body height and alignment are maintained. There is straightening of the cervical lordosis. Anterior osteophytes are seen throughout. The odontoid process and lateral masses are intact. The atlantoaxial articulation is preserved noting advanced productive degenerative change. The spinous processes appear intact. There is mild to moderate multilevel cervical spondylosis. Uncovertebral and facet arthropathy contribute to neural foraminal stenosis at several levels. Intervertebral discs: There is moderate disc space narrowing seen at C5-C6 and C6-C7. Mild disc space narrowing is seen at C4-C5. Central canal: Large posterior disc osteophyte complexes at C4-C5, C5-C6, and C6-C7 likely contribute to multilevel acquired compromise of the central canal. Soft tissues: The prevertebral and paraspinous soft tissues are within normal limits. Calcification is noted throughout the nuchal ligament. There is atherosclerotic calcification of the carotid bulbs. Calvarium: The visualized calvarium at the skull base appears intact. Brain parenchyma: Partially visualized brain parenchyma the skull base is within normal limits. Sinuses and mastoids: The visualized paranasal sinuses are clear. The mastoid air cells are well pneumatized. Lung apices: Clear as visualized. IMPRESSION: 1. There is no evidence of fracture or subluxation involving the cervical spine. 2. Osteopenia and multilevel spondylosis as above. Electronically signed by: Benito Robledo M.D. 03/30/2019 6:[address] SCAN OF THE CHEST, ABDOMEN, AND PELVIS WITH IV CONTRAST; CT SCAN OF THE LUMBAR SPINE WITHOUT IV CONTRAST CLINICAL HISTORY: Trauma. Fall. Low back pain. COMPARISON STUDY: CT scan of the chest, abdomen, and pelvis dated 02/27/2011. Chest x-ray dated 09/08/2018. TECHNIQUE: Following the IV administration of 93 of Optiray 320, CT scan of the chest, abdomen, and pelvis was performed from the thoracic inlet to the proximal femora. Images are reviewed in the axial, sagittal, and coronal planes. IV contrast was administered without complication. Additionally, unenhanced CT scan of the lumbar spine is performed from the lower thoracic spine to the sacrum. The lumbar spinal CT images are reviewed in the axial, sagittal, and coronal planes. IV contrast was not administered specifically for the lumbar spine CT A dose lowering technique was utilized adhering to the principles of ALARA. CT DOSE: 3356.50 mGy.cm FINDINGS: CHEST: Thyroid: Imaged portions of the thyroid gland are normal in size and attenuation. Thoracic aorta: The thoracic aorta is normal in caliber and demonstrates bovine variant arch anatomy. No dissection is seen. Heart: The heart is mildly enlarged and without pericardial effusion. There are coronary artery calcifications. The pulmonary trunk is normal in caliber. Lungs and pleural spaces: Evaluation of the lung parenchyma is degraded by motion artifact. There is no airspace consolidation, pleural effusion, or pneumothorax. The trachea and central airways are clear. Scarring/atelectasis is noted at the lung bases. A 2 mm pleural-based nodule in the right upper lobe on image #73 is unchanged from 2011 and abdominal significance. A 3 mm right lower lobe nodule image #94 was not identified previously. Mediastinum: There is no mediastinal hematoma or lymphadenopathy. Tuyet: Clear. Axillae: There is no axillary lymphadenopathy. Bony thorax: The skeletal structures are osteopenic. There are numerous healed bilateral rib fractures. Anterior left 3rd, 4th, and 5th rib fractures are age indeterminant. There are mild chronic superior endplate compression deformities of T3, T4, T5, and T6. The remainder of the bony thorax appears intact. No lytic or blastic lesions are identified. ABDOMEN AND PELVIS: Liver: The contrast-enhanced liver is normal in size, contour, and attenuation. There is no intrahepatic or ductal dilatation. The hepatic veins and portal veins are patent. Scattered hepatic cysts measure up to 3.3 cm. Additional subcentimeter hepatic hypodensities also likely represent cysts but are too small for definitive characterization. Gallbladder: Unremarkable. Spleen: Normal in size and attenuation. Pancreas: Unremarkable. Adrenal glands: Unremarkable. Kidneys: The contrast enhanced kidneys are normal in size and without hydronephrosis. The kidneys enhance symmetrically. A 1.3 cm exophytic cyst is incidentally noted on the left. Abdominal vasculature: The abdominal aorta is normal in course and caliber noting mild atherosclerotic calcification. Bowel: There is moderate diverticulosis of the left colon without CT evidence of acute diverticulitis. The colon is redundant. No bowel obstruction is identified. A 1.9 cm duodenal lipoma is incidentally noted on image #198. The appendix is well-visualized and normal. Peritoneum: There is no intraperitoneal free air or abdominal ascites. There is a fat-containing umbilical hernia. Lymphadenopathy: None. Pelvic viscera: The bladder is distended but otherwise normal in appearance. The prostate gland is diminutive. The seminal vesicles are normal as imaged. A tiny fat-containing right inguinal hernia is noted. There is asymmetric atrophy of the right gluteal musculature. Skeletal structures: See below for dedicated assessment of the lumbar spine. The skeletal structures are osteopenic. The bony pelvis and proximal femora appear intact. Arthritic change is seen involving the hips, sacroiliac joints, and pubi c symphysis. No lytic or blastic lesions are seen. LUMBAR SPINE: Vertebral body height and alignment are maintained throughout the lumbar spine. There is postoperative change from laminectomy and posterior fusion seen from L3-L5. The orthopedic hardware appears intact. Lucency around the right interpedicular screw of L5 suggests loosening. The transverse processes are intact. Sclerotic change within the right transverse process of L1 is unchanged from 2011 and likely represents a bone island. Anterior and lateral marginal osteophytes are seen throughout. There is no evidence of spondylolysis. There has been discectomy at L3-L4 and L4-L5. Moderate disc space narrowing is seen at the remaining lumbar levels. There is no evidence of large disc herniation or high-grade stenosis by CT. A hemitransitional left lumbosacral segment is incidentally noted. The paraspinous soft tissues are within normal limits. IMPRESSION: 1. There is no airspace consolidation, pleural effusion, or pneumothorax. 2. There are age indeterminant left anterior 3rd, 4th, and 5th rib fractures, which may be chronic. Correlate for point tenderness. 3. There is no evidence of solid organ injury in the abdomen or pelvis. 4. There is no evidence of fracture or malalignment involving the lumbar spine. 5. There is postoperative change from laminectomy and posterior fusion from L3- L5. Lucency around the right interpedicular screw at L5 suggests loosening. 6. Moderate diverticulosis of the left colon without CT evidence of acute diverticulitis. 7. Additional findings as above. Electronically signed by: Benito Robledo M.D. 03/30/2019 7:[address] SCAN OF THE BRAIN WITHOUT IV CONTRAST CLINICAL HISTORY: Fall. COMPARISON STUDY: CT of the brain dated 06/30/2013. TECHNIQUE: Unenhanced axial CT scan of the brain is performed from the vertex to the skull base. A dose lowering technique was utilized adhering to the principles of ALARA. FINDINGS: Brain parenchyma: There are age-related involutional changes noting mild subcortical and periventricular microangiopathic change. There is no hemorrhage, mass effect, or evidence of acute territorial ischemia by CT criteria. Khanna- white matter differentiation is preserved. No extra-axial fluid collection is seen. Ventricles, sulci, cisterns: Prominent secondary to involutional change. Intracranial vasculature: There is atherosclerotic calcification of the cavernous carotid and vertebral arteries. Calvarium: The skeletal structures are osteopenic. There is no depressed calvarial fracture. Sinuses and mastoids: The visualized paranasal sinuses are clear. The mastoid air cells are well pneumatized. Orbits: The bony orbits are grossly intact. IMPRESSION: There is no hemorrhage, mass effect, or evidence of acute territorial ischemia by CT criteria. Electronically signed by: Benito Robledo M.D. 03/30/2019 5:57 PM SINGLE VIEW PELVIS; 3 VIEWS LEFT FEMUR CLINICAL HISTORY: Fall with left hip pain. FINDINGS: An AP view of the pelvis with AP, frog-leg, and lateral views of the left femur are obtained. No prior studies are available for comparison at the time of dictation. The skeletal structures are osteopenic. There is no radiographic evidence of fracture involving the hips or bony pelvis. There is no radiographic evidence of left femoral fracture. Mild degenerative change and joint space narrowing is seen in the hips. Small enthesophytes arise from the anterior superior iliac spines. Degenerative sclerosis is noted in the sacroiliac joints. Lumbosacral spondylosis is partially imaged with evidence of L4-S1 spinal fusion. Phleboliths are observed in the pelvis. There is no evidence of bowel obstruction. The overlying soft tissues are normal as imaged. Advanced atherosclerotic calcification is seen in the femoral arteries. The left knee joint is grossly maintained. IMPRESSION: 1. There is no radiographic evidence of fracture involving the hips or bony pelvis. 2. There is no radiographic evidence of left femoral fracture. Electronically signed by: Benito Robledo M.D. 03/30/2019 5:26 PM SINGLE VIEW PELVIS; 3 VIEWS LEFT FEMUR CLINICAL HISTORY: Fall with left hip pain. FINDINGS: An AP view of the pelvis with AP, frog-leg, and lateral views of the left femur are obtained. No prior studies are available for comparison at the time of dictation. The skeletal structures are osteopenic. There is no radiographic evidence of fracture involving the hips or bony pelvis. There is no radiographic evidence of left femoral fracture. Mild degenerative change and joint space narrowing is seen in the hips. Small enthesophytes arise from the anterior superior iliac spines. Degenerative sclerosis is noted in the sacroiliac joints. Lumbosacral spondylosis is partially imaged with evidence of L4-S1 spinal fusion. Phleboliths are observed in the pelvis. There is no evidence of bowel obstruction. The overlying soft tissues are normal as imaged. Advanced atherosclerotic calcification is seen in the femoral arteries. The left knee joint is grossly maintained. IMPRESSION: 1. There is no radiographic evidence of fracture involving the hips or bony pelvis. 2. There is no radiographic evidence of left femoral fracture. Electronically signed by: Benito Robledo M.D. 03/30/2019 5:[address] SCAN OF THE CHEST, ABDOMEN, AND PELVIS WITH IV CONTRAST; CT SCAN OF THE LUMBAR SPINE WITHOUT IV CONTRAST CLINICAL HISTORY: Trauma. Fall. Low back pain. COMPARISON STUDY: CT scan of the chest, abdomen, and pelvis dated 02/27/2011. Chest x-ray dated 09/08/2018. TECHNIQUE: Following the IV administration of 93 of Optiray 320, CT scan of the chest, abdomen, and pelvis was performed from the thoracic inlet to the proximal femora. Images are reviewed in the axial, sagittal, and coronal planes. IV contrast was administered without complication. Additionally, unenhanced CT scan of the lumbar spine is performed from the lower thoracic spine to the sacrum. The lumbar spinal CT images are reviewed in the axial, sagittal, and coronal planes. IV contrast was not administered specifically for the lumbar spine CT A dose lowering technique was utilized adhering to the principles of ALARA. CT DOSE: 3356.50 mGy.cm FINDINGS: CHEST: Thyroid: Imaged portions of the thyroid gland are normal in size and attenuation. Thoracic aorta: The thoracic aorta is normal in caliber and demonstrates bovine variant arch anatomy. No dissection is seen. Heart: The heart is mildly enlarged and without pericardial effusion. There are coronary artery calcifications. The pulmonary trunk is normal in caliber. Lungs and pleural spaces: Evaluation of the lung parenchyma is degraded by motion artifact. There is no airspace consolidation, pleural effusion, or pneumothorax. The trachea and central airways are clear. Scarring/atelectasis is noted at the lung bases. A 2 mm pleural-based nodule in the right upper lobe on image #73 is unchanged from 2011 and abdominal significance. A 3 mm right lower lobe nodule image #94 was not identified previously. Mediastinum: There is no mediastinal hematoma or lymphadenopathy. Tuyet: Clear. Axillae: There is no axillary lymphadenopathy. Bony thorax: The skeletal structures are osteopenic. There are numerous healed bilateral rib fractures. Anterior left 3rd, 4th, and 5th rib fractures are age indeterminant. There are mild chronic superior endplate compression deformities of T3, T4, T5, and T6. The remainder of the bony thorax appears intact. No lytic or blastic lesions are identified. ABDOMEN AND PELVIS: Liver: The contrast-enhanced liver is normal in size, contour, and attenuation. There is no intrahepatic or ductal dilatation. The hepatic veins and portal veins are patent. Scattered hepatic cysts measure up to 3.3 cm. Additional subcentimeter hepatic hypodensities also likely represent cysts but are too small for definitive characterization. Gallbladder: Unremarkable. Spleen: Normal in size and attenuation. Pancreas: Unremarkable. Adrenal glands: Unremarkable. Kidneys: The contrast enhanced kidneys are normal in size and without hydronephrosis. The kidneys enhance symmetrically. A 1.3 cm exophytic cyst is incidentally noted on the left. Abdominal vasculature: The abdominal aorta is normal in course and caliber noting mild atherosclerotic calcification. Bowel: There is moderate diverticulosis of the left colon without CT evidence of acute diverticulitis. The colon is redundant. No bowel obstruction is identified. A 1.9 cm duodenal lipoma is incidentally noted on image #198. The appendix is well-visualized and normal. Peritoneum: There is no intraperitoneal free air or abdominal ascites. There is a fat-containing umbilical hernia. Lymphadenopathy: None. Pelvic viscera: The bladder is distended but otherwise normal in appearance. The prostate gland is diminutive. The seminal vesicles are normal as imaged. A tiny fat-containing right inguinal hernia is noted. There is asymmetric atrophy of the right gluteal musculature. Skeletal structures: See below for dedicated assessment of the lumbar spine. The skeletal structures are osteopenic. The bony pelvis and proximal femora appear intact. Arthritic change is seen involving the hips, sacroiliac joints, and pubic symphysis. No lytic or blastic lesions are seen. LUMBAR SPINE: Vertebral body height and alignment are maintained throughout the lumbar spine. There is postoperative change from laminectomy and posterior fusion seen from L3-L5. The orthopedic hardware appears intact. Lucency around the right interpedicular screw of L5 suggests loosening. The transverse processes are intact. Sclerotic change within the right transverse process of L1 is unchanged from 2011 and likely represents a bone island. Anterior and lateral marginal osteophytes are seen throughout. There is no evidence of spondylolysis. There has been discectomy at L3-L4 and L4-L5. Moderate disc space narrowing is seen at the remaining lumbar levels. There is no evidence of large disc herniation or high-grade stenosis by CT. A hemitransitional left lumbosacral segment is incidentally noted. The paraspinous soft tissues are within normal limits. IMPRESSION: 1. There is no airspace consolidation, pleural effusion, or pneumothorax. 2. There are age indeterminant left anterior 3rd, 4th, and 5th rib fractures, which may be chronic. Correlate for point tenderness. 3. There is no evidence of solid organ injury in the abdomen or pelvis. 4. There is no evidence of fracture or malalignment involving the lumbar spine. 5. There is postoperative change from laminectomy and posterior fusion from L3- L5. Lucency around the right interpedicular screw at L5 suggests loosening. 6. Moderate diverticulosis of the left colon without CT evidence of acute diverticulitis. 7. Additional findings as above. Electronically signed by: Benito Robledo M.D. 03/30/2019 7:01 PM ECG Data Attestation: I personally reviewed and interpreted this ECG as follows: Indication: back/shoulder pain Rate (beats per minute): 90 Rhythm: sinus rhythm Findings: + other (normal axis), + 1st degree AV block and + RBBB Blood Pressure Blood Pressure Findings: Elevated blood pressure Blood Pressure Disposition: further management by hospitalist [facility] Narrative Patient is a 74-year-old male who presents the ER following a mechanical fall in a short period of loss consciousness. He is complaining of left chest, abdomen and hip pain. IV was established blood work was obtained showed no significant leukocytosis or anemia. INR was unremarkable. BMP along with LFTs bilirubin and troponin was negative. UA was negative. CT of the head, cervical region, chest lumbar and abdomen pelvis shows acute versus old 3 through 5 rib fractures with no other significant pathology. X-rays of the hip and left femur were negative. Patient was given IV pain medications. Was given IV fluids. Attempted to ambulate but was unsuccessful as he had significant pain. Patient was unable to even ambulate with a walker. Consummately patient was updated bedside as well as family was discussed with the hospitalist for observation. Impression & Plan Closed rib fracture Discharge Plan Visit Data *Final* Discharge Date/Time: 03/30/19 21:44 Chief Complaint: Fall Stated Complaint: FALL, BACK PAIN, HIP & KNEE PAIN ED Provider: John Kim Discharge Problem: Closed rib fracture Patient Disposition: Admitted As Inpatient Discharge Instructions Interventions: ED Discharge Assessment Last Done: 03/30/19 21:44 Discharge Problem: Closed rib fracture Qualifiers: Encounter type: initial encounter Rib fracture type: multiple ribs Laterality: bilateral Qualified Code(s): S22.43XA - Multiple fractures of ribs, bilateral, initial encounter for closed fracture The scribe's documentation has been prepared under my direction and personally reviewed by me in its entirety. I confirm that the note above accurately reflects all work, treatment, procedures, and medical decision making performed by me.
[2019-03-30] MEDS ORDERED: LORazepam 0.5 MG/1 ML VIAL IV PRN (23:43)
[2019-03-30] MEDS ORDERED: LORazepam 1 MG/2 ML VIAL IV STA (23:44)
[2019-03-31] MEDS: TESTOSTERONE~ORDER AWAITING ACTION SCH ×3 (00:09→17:08)
--- NOTE | 2019-03-31 07:18 | Magnetic Resonance Report ---
MR hip LT wo con CLINICAL HISTORY: Intractable left hip and groin pain. History of trauma. COMPARISON STUDY: X-ray study dated 03/30/2019 FINDINGS: Imaging was obtained in the axial, sagittal, and coronal planes. There are postsurgical changes of a lower lumbar spinal fusion. There are no areas of marrow replacement to indicate neoplasm. There are no areas of marrow replacement to indicate occult fracture or bone bruise. There are small bilateral hip effusions left larger than right. There are chronic bilateral partial hamstring avulsions. There is gluteal muscular atrophy IMPRESSION: 1. Small bilateral joint effusions 2. Chronic bilateral partial hamstring avulsions. Electronically signed by: Tate Le M.D. 03/31/2019 7:17 AM
[2019-03-31] MEDS ORDERED: ASPIRIN 81 MG ECTAB PO SCH (09:00)
[2019-03-31] MEDS ORDERED: MULTIVITAMIN TAB PO SCH (09:00)
[2019-03-31] MEDS ORDERED: CHOLECALCIFEROL 1,000 UNITS TAB PO SCH (09:00)
[2019-03-31] MEDS: PHENYTOIN SODIUM ER 100 MG CAP PO SCH (09:07)
[2019-03-31] MEDS: HEPARIN SOD 5,000 UNIT/0.5 ML VIAL SQ SCH (09:09)
--- NOTE | 2019-03-31 17:15 | Discharge Summary ---
Date of Service March 31, 2019 Admission HPI Per Admitting Provider The patient is a 74-year-old male with a past medical history including hyperlipidemia, lumbar spinal stenosis status post fusion September 2018, PTSD, testicular hypofunction, hypertension and obesity, who reports to the emergency department with severe intermittent sharp left hip pain after a fall that occurred prior to arrival. This pain is nothing similar to his radicular pain in the past. He is unable to bear weight due to the severity of the pain when it occurs. Principal Diagnosis Hip pain Discharge Exam Constitutional WD/WN, vitals as above Respiratory normal respiratory effort, lungs clear to auscultation Cardiovascular RRR, no murmur, no edema Gastrointestinal (Abdomen) normal bowel sounds, soft, nontender, no hepatosplenomegaly Musculoskeletal lateral hips tender to deep palpation Skin no rashes, warm and dry Neurologic moves all extremities and awake Psychiatric A+Ox3, euthymic affect Discharge Data Allergies Allergy/AdvReac Type Severity Reaction Status Date / Time fexofenadine Allergy Unknown unknown Verified 03/30/19 18:09 Sulfa (Sulfonamide Allergy Unknown UNKNOWN Verified 03/30/19 18:09 Antibiotics) simvastatin AdvReac Unknown Nausea Verified 03/30/19 18:09 Consultations 03/30/19 19:28 ED Decision to Admit Stat 03/30/19 22:04 Consult Case Management - Discharge Planning Routine Ordered Studies 03/30/19 16:25 CT abd pelvis IV con only Stat CT cervical spine wo con Stat CT chest w con Stat CT head/brain wo con Stat 03/30/19 16:28 CT lumbar spine wo con Stat 03/31/19 00:08 MR hip LT wo con Urgent Hospital Course (1) Acute pain of left hip: Secondary to mechanical fall as patient tripped while walking outside. Denies hitting his head CT of pelvis was negative. MRI showed without fracture showin. Small bilateral joint effusions 2. Chronic bilateral partial hamstring avulsions. Patient did well with physical therapy and they recommend return home. Patient is very anxious to be discharged. We were originally going to have him see ortho here but as his MRI did not show any acute changes, his pain is controlled, and he did well enough to return home with PT I think he can go home with close follow up with his primary next week. Will also have him start outpatient PT (2) Hypertension: Continue lisinopril 20 mg every evening and aspirin 81 mg every morning. Blood pressures were elevated as high as 187/102 while here. Asymptomatic, specifically denies chest pain, sob, dizziness, blurred vision or headache. May be secondary to anxiety/anxiousness about hospital stay. Recommend patient check blood pressures daily at home and take a log to his pcp. (3) Seizure disorder: Continue phenytoin 300 mg p.o. twice daily (4) Closed rib fracture: Has no acute symptoms regarding L3, 4, 5 anterior rib fractures that appear chronic on CT (5) Hyperlipidemia: Continue pravastatin 20 mg every evening (6) Post-traumatic stress disorder: Will use Ativan for sedation for procedures such as MRI (7) Testicular hypofunction: Continue topical treatment every a.m. (8) Lumbar spinal stenosis: Status post L3-[address] questions possibility of loosening of screw at L5. No radicular complaints, no point tenderness. Follow up with Dr. Donis outpatient Total Time Total Time Spent Total Time Spent (In Minutes): greater than 30 minutes Discharge Plan Discharge Items Patient Disposition: Home - Self-Care Reason For Visit: INTRACTABLE LEFT HIP PAIN Discharge Diagnosis: Left hip pain Discharge Goals: Decrease discomfort and Improve function Activity: Resume your previous activity Activity Comment: gradually as tolerated Non-emergency contact: Primary Care Provider Call non-emergency contact if: you have any medication questions Follow-up/Referrals: Keyla Burch DO [Primary Care Provider] - Diet: Regular Addtl Provider Instructions: Please see Dr. Burch next week. You will go home with a script for physical therapy. You can take this to the facility of your choice. For pain you can take 1000 mg of acetaminophen every 8 hours (do not exceed 3,000 mg in 24 hours). While you were here your blood pressure was a bit elevated. Please check your blood pressure at home daily and keep a log to take with you to your provider. Please follow up with Dr. Donis next week concerning possible screw loosening at the site of your back surgery. Prescriptions: Continued phenytoin sodium extended [Dilantin Extended] 100 mg capsule 300 mg PO BID Qty: 90 RF: 0 multivitamin Tablet 1 tab PO QAM RF: 0 pravastatin 40 mg Tablet 20 mg PO QPM RF: 0 aspirin [Aspir-81] 81 mg Tablet,Delayed Release (Dr/Ec) 81 mg PO QAM RF: 0 cholecalciferol (vitamin D3) [Vitamin D3] 1,000 unit Capsule 1,000 unit PO QAM RF: 0 testosterone 1.62 % (20.25 mg/1.25 gram) Gel In Packet 1 dose topical QAM RF: 0 cyclobenzaprine 10 mg Tablet 10 mg PO TID PRN (Reason: Muscle Spasm) RF: 0 acetaminophen [Tylenol Extra Strength] 500 mg Tablet 500 mg PO Q6H PRN (Reason: Pain) RF: 0 lisinopril 20 mg tablet 20 mg PO HS RF: 0 Stand-Alone Forms: [facility] Discharge Orders: Discharge Order (Routine); Ordered 03/31/19 Ordered By: Meredith Pavon Admission Data Admit Date/Time: 03/30/19 20:33 Attending Provider: Kodak Munoz Admit Provider: Flo Marmolejo Primary Care Provider: Keyla Burch Other Providers: Flo Marmolejo Service: Medical
== END 2019-03-31 18:34 | disposition home or self-care (01) ==
LOC: ED 16:02 → 3E 16:02 → SUATTDRO 20:33 → 3E 21:44